=== PATIENT | female | born 1995 | race Caucasian/White ===

== ENCOUNTER → 2024-09-28 15:22 | Outpatient (BNVA) | payer MEDICAID, SELFPAY | PROVIDERS: PCP Internal Medicine; Visit Provider Nurse Practitioner Family | DX: N39.0 Urinary tract infection, site not specified (principal) | CPT/HCPCS: 51798; 81003; 99212 ==

== ENCOUNTER 2024-12-26 15:39 | Outpatient (REF) | payer MEDICAID, SELFPAY ==
--- NOTE | ~2024-12-26 | US_ITS ---
EXAMINATION: US RETROPERITONEUM HISTORY: N39.0 - Urinary tract infection, site not specified TECHNIQUE: Real-time grayscale ultrasound imaging of the kidneys was performed and images were reviewed. COMPARISON: There are no prior studies for comparison. FINDINGS: Right kidney: The right kidney measures 9.8 x 3.1 x 4.7 cm. Renal parenchymal echotexture and thickness are normal. There are no masses. There is no hydronephrosis or renal calculi. Left Kidney: The left kidney measures 9.6 x 4.4 x 4.2 cm. Renal parenchymal echotexture and thickness are normal. There are no masses. There is no hydronephrosis or renal calculi. The urinary bladder is unremarkable. Bilateral ureteral jets are identified. Before voiding, the urinary bladder measured 6.5 x 5.4 x 9.7 cm, for an estimated volume of 177 mL. After voiding, the urinary bladder measured 3.7 x 1.1 x 3.5 cm, for an estimated volume of 7 mL US/US retroperitoneal comp IMPRESSION: Unremarkable retroperitoneal ultrasound. Post void bladder residual of 7 mL. Electronically signed by: Vel Easley MD 12/28/2024 12:40 PM EDT
--- OUTSIDE RECORDS SUMMARY | 2024-12-26 18:28 | XMS_ITS | Clinical Summary ---
Author Organization [employer] Address [address] [facility] 7t [place] [address] Care Team Providers Care Professor Of Rhetoric Name Role Phone Steven Pruitt MD Primary Care Prov ider Allergies Active Allergy Reactions Criticality Noted Date Comments Gluten Meal 09/28/2015 Wheat 09/28/2015 Medications MV-Min-Fe Fum-FA-DHA ( 1 PO) Take by mouth. Active acetaminophen (Tylenol) 500 MG tablet Take 2 tablets (1,000 mg) by mouth every 6 (six) hours if needed for moderate pain or fever for up to 25 doses. 40 tablet Active Additional Information Patient not taking.Reported on 10/06/2024 ibuprofen 400 MG tablet Take 1 tablet (400 mg) by mouth every 6 (six) hours if needed for moderate pain or fever for up to 30 doses. 30 tablet Active Additional Information Patient not taking.Reported on 10/06/2024 Active Problems Problem Noted Date Diagnosed Date Dysuria 03/31/2024 Assessment & Plan (03/31/2024 4:15 PM EDT): -02/2023 Ucx Staphylococcus saprophyticus Quant > 100,000 cfu/mL Staphylococcus saprophyticus: Clindamycin >=8(R) Staphylococcus saprophyticus: Erythromycin >=8(R) Staphylococcus saprophyticus: Nitrofurantoin <=16(S) Staphylococcus saprophyticus: Oxacillin 0.5(S) Staphylococcus saprophyticus: Penicillin-G 0.12(R) Staphylococcus saprophyticus: Tetracycline <=1(S) Staphylococcus saprophyticus: Trimethoprim/Sulfamethoxazole <=10(S) Specimen Source: Urine clean catch Specimen Colle Urine dipstick today Nitrates neg LE small ,reports last UTI was 08/2023, has couple a year ,seems possibly after has sex urine preg test neg today Pt w LUTS no concerning symptoms for pyelonephritis -improve hydration -advised pt to make sure to urinate if possible before and after having sex -UA w reflex to cx -empiric macrobid BID for 5 days and pyridium -rec to f w PCP if recurrent UTIs may need to be started on ATB x1 dose after sex -alarm signs and symptoms discussed Dental plaque 11/03/2023 Localized gingival recession, minimal 11/03/2023 Mild gingivitis 09/11/2022 Encounters Date Type Department Care Team Description 11/11/20[address] [facility] () Department [address] [id number] Provider, Population Health Generic 10/06/2024 8:00 AM EST Office Visit [facility] [address] [place] [address] ZiaKim Dental plaque (Primary Dx); Localized gingival recession, minimal from Last 3 Months Social History Tobacco Use Types Packs/Day Years Used Date Smoking Tobacco: Former Cigarettes Passive Smoke Exposure: Current Smokeless Tobacco: Never Tobacco Cessation:Counseling Given: Not Answered Passive Exposure Comments:Pt's boyfriend Alcohol Use Standard Drinks/Week Comments Never 0 (1 standard drink = 0.6 oz pur e alcohol) Depression Answer Date Recorded Patient Health Questionnaire-9 Score 0 10/14/2023 Patient Health Questionnaire-9 Score 0 10/14/2023 Last PHQ-9: Questionnaire Data Not on file 0 10/14/2023 Housing Stability Answer Date Recorded What is your housing situation today? I have koffi bennett 10/07/[address] you li ve. Do you have problems with any of the following? None of the above 10/07/2023 Food Insecurity Answer Date Recorded Within the past 12 months, y ou worried that your food would run out before you got money to buy more: Never True 10/07/2023 Within the past 12 months,th e food you bought just didn't last and you didn't have enough money to get more: Never True 02/2024 Transportation Answer Date Recorded In the past 12 months, has l ack of transportation kept you from medical appts, meetings, work or from getting things needed for daily living? No 10/07/2023 Utilities Answer Date Recorded In the past 12 months, has t he electric, gas, oil or water company threatened to shut off services in your home? No 10/07/2023 Depression Answer Date Recorded Patient Health Questionnaire-2 Score 0 10/14/2023 Comments Unknown Sex and Gender Information Value Date Recorded Sex Assigned at Female 06/30/2022 10:17 AM EDT Legal Sex Female 10:17 AM EDT Gender Identity Female 06/30/2022 10:17 AM EDT Sexual Orientation Bisexual 06/30/2022 10 :17 AM EDT Last Filed Vital Signs Vital Sign Reading Time Taken Comments Blood Pressure 104/68 10/06/2024 7:54 AM EST Pulse 87 08/02/2024 8:50 AM EST Temperature 36.7 ??C (98.1 ??F) 08/02/2024 8:50 AM ES T Respiratory Rate 17 08/02/2024 8:50 AM EST Oxygen Saturation 99% 08/02/2024 8:50 AM EST Inhaled Oxygen Concentration - - Weight 66.3 kg (146 lb 3.2 oz) 08/02/2024 8:50 A M EST Height 162.6 cm (5' 4 ) 10/14/2023 9:42 AM EST Body Mass Index 25.1 10/14/2023 9:42 AM EST Plan of Treatment Upcoming Encounters Date Type Department Care Team (Late st Contact Info) Description 04/20/2025 8:00 AM EDT Office Visit [facility] [address] [place] [address] Kim Lizarraga [address] [place] [address] Health Maintenance Due Date Last Done Comments Alcohol/Substance Use Screening 2006 Family Planning (PISQ) 2009 Cervical Cancer Screening 07/17/2021 Pap Smear 07/17/2021 07/17/2020 COVID-19 Vaccine ( season) 2024 03/28/2021, 02/28/2021 Influenza Vaccine (#1) 2024 , 09/28/2018, 08/21/2011, Additional history exists Dental Oral Exam 05/06/2024 11/03/2023, 09/11/2022 SDOH Screening 10/07/2024 10/07/2023 Depression Screening 10/14/2024 10/14/2023, 10/14/19 24 HPV/Cotest 2024 Dental X-Ray: Bitewings 11/03/2024 11/03/2023, 09/11 Dental Prophylaxis 04/06/2025 10/06/2024, 0 11/03/2023, 09/11/2022 Dental X-Ray: Full Mouth 09/12/2025 09/11/2022 Tobacco Screening 10/06/2025 10/06/2024 DTaP/Tdap/Td Vaccines (8 - Td or Tdap) 09/28/2028 09/28/2018, 05/05/2007, 11/08/1998, Additional history exists Zoster Vaccines (1 of 2) 2044 RSV Patients and Patients Aged 60 years or older (1 - 1-dose 75+ series) 2069 HIB Vaccines Completed 01/26/1996, 05/01, 02/23/1995, Additional history exists IPV Vaccines Completed 11/08/1998, 05/01, 02/23/1995, Additional history exists Meningococcal Vaccine Aged Out 02/11/2007 No lizeth iban eligible based on patient's age to complete this topic HPV Vaccines Completed 09/06/2007, 02/2008, 05/05/2007, Additional history exists HIV Screening Completed 05/29/2021, 05/02, 03/22/2021, Additional history exists Hepatitis C Screening Completed 05/29/2021 , 03/22/2021, 09/30/2019 Hepatitis B Vaccines Completed 08/22/2021, 05/30/2021, 05/02/2021, Additional history exists Hepatitis A Vaccines Aged Out No long er eligible based on patient's age to complete this topic Pneumococcal Vaccine: Pediatrics (0 to 5 Years) and At-Risk Patients (6 to 49) Years) Aged Out No longer eligible based on patient's age to complete this topic RSV under 20 months Aged Out No longe r eligible based on patient's age to complete this topic Rotavirus Vaccines Aged Out No longer eligible based on patient's age to complete this topic Procedures Procedure Name Priority Date/Time Associated Diagnosis Comments CASE PRESENTATION, DETAILED AND EXTENSIVE TREATMENT PLANNING Routine 10/06/2024 8:00 AM EST Dental plaque Localized gingival recession, minimal ORAL HYGIENE INSTRUCTIONS Routine 10/06/2024 8:00 AM EST Dental plaque Localized gingival recession, minimal PROPHYLAXIS - ADULT Routine 10/06/2024 8 :00 AM EST Dental plaque BITEWINGS - 4 RADIOGRAPHIC IMAGES Routine 11/03/2023 10:00 AM EST Dental plaque Localized gingival recession, minimal PERIODIC ORAL EVALUATION - ESTABLISHED PATIENT Routine 11/03/2023 10:00 AM EST INTRAORAL - COMPLETE SERIES OF RADIOGRAPHIC IMAGES Routine 09/11/2022 11:00 AM EST ZZZ HISTORICAL HEPATITIS C AB W/REFL TO HCV RNA, QN, PCR Routine 05/29/2021 11:45 AM EDT HIV 1/2 ANTIGEN/ANTIBODY, FOURTH GENERATION W/RFL Routine 05/29/2021 11:14 AM EDT THINPREP PAP Routine 07/17/2020 2:15 PM EST from Last 3 Months or Most Recently Relevant to Health Maintenance Results * HEPATITIS C AB W/REFL TO HCV RNA, QN, PCR (05/29/2021 11:45 AM EDT) HEPATITIS C ANTIBODY NON-REACT SHANIQUA NON-REACT SHANIQUA [facility] INDEX 0.02 <1.00 [facility] Comment: ?? HCV antibody was non-reactive. There is no laboratory ?? evidence of HCV infection. ?? In most cases, no further action is required. However, if recent HCV exposure is suspected, a test for HCV RNA (test code 67948) is suggested. ?? For additional information please refer to http://education.[employer]/faq/OEC86g1 (This link is being provided for informational/ educational purposes only.) ?? 05/29/2021 11:4 5 AM EDT us Maye KNOXP HISTORICAL/NON ORDERABLE LABS Final Result Performing Organization Address [facility]/ZIP Co de Phone Number [facility] [address] [place] [address], * HIV 1/2 ANTIGEN/ANTIBODY,FOURTH GENERATION W/RFL (05/29/2021 11:14 AM EDT) Pathologist [facility] HIV-1/2 ANTIGEN AND ANTIBODIES, 4TH GENERATION W/ REFLEX TNP [facility] Comment: TEST NOT PERFORMED ?? Duplicate test. 05/29/2021 11:1 4 AM EDT us Maye Saab [facility] LAB BLOOD ORDERABLES Final Res ult Performing Organization Address [facility] de Phone Number [facility] [address] [place] [address], [place] * THINPREP PAP (07/17/2020 2:15 PM EST) [facility] Clinical Information: SEE COMMENT [facility] Comment:None given COMMENT SEE COMMENT [facility] Comment: EXPLANATORY NOTE: ? The Pap is a screening test for cervical cancer. It is ?? not a diagnostic test and is subject to false negative ?? and false positive results. It is most reliable when a ?? satisfactory sample, regularly obtained, is submitted ?? with relevant clinical findings and history, and when ?? the Pap result is evaluated along with historic and ?? current clinical information. ?? Bookkeeping Clerks Supervisor: SEE COMMENT [facility] Comment: DMM, CT(ASCP) CT screening location: [address] ??[address] Infection SEE COMMENT [facility] Comment: Shift in vaginal catrina suggestive of bacterial vaginosis. Interpretation/Resu lt: SEE COMMENT [facility] Comment:Negative for intraep ithelial lesion or malignancy. LMP: SEE COMMENT [facility] Comment:NONE GIVEN Prev. BX: NONE GIVEN [facility] Prev. PAP: SEE COMMENT [facility] Comment:NONE GIVEN Review Bookkeeping Clerks Supervisor: SEE COMMENT [facility] Comment: HJP, CT(ASCP) CT screening location: [address] ??[address] SOURCE: SEE COMMENT [facility] Comment:None given Statement Of Adequacy: SEE COMMENT [facility] Comment: Satisfactory for evaluation. Endocervical/transformation zone component absent. Age and/or menstrual status not provided 07/17/2020 2:15 PM EST us Halina Reece CNM LAB PATHOLOGY ORDERABLES Final Result [facility] [address] from Last 3 Months or Most Recently Relevant to Health Maintenance Insurance [id number] ADULT Care Teams Professor Of Rhetoric Relationship Specialty Start Date End Date GleasonSteven Lindo MD [address] [place] [id number] PCP - General Internal Medicine 01/29/20
--- OUTSIDE RECORDS SUMMARY | 2024-12-26 18:28 | XMS_ITS | Encounter Summary ---
Author Organization [employer] Address [address] [place] [address] 7 [place] [address] Care Team Providers Care Tipple Mechanic Name Role Phone Steven Pruitt MD Primary Care Prov ider Encounter Details Date Type Department Care Team (Late st Contact Info) Description 08/13/2022 Abstract [facility] ADULT D[facility] [address] [place] [address] Kim Lizarraga [address] [place] [phone] Social History Tobacco Use Types Packs/Day Years Used Date Smoking Tobacco: Never Assessed Comments Unknown Sex and Gender Information Value Date Recorded Sex Assigned at Female 06/30/2022 10:17 AM EDT Legal Sex Female 10:17 AM EDT Gender Identity Female 06/30/2022 10:17 AM EDT Sexual Orientation Bisexual 06/30/2022 10 :17 AM EDT documented as of this encounter Plan of Treatment Upcoming Encounters Date Type Department Care Team (Late st Contact Info) Description 04/20/2025 8:00 AM EDT Office Visit [facility] [address] [place], [place] [phone] Kim Lizarraga [address] [place], [place] [phone] documented as of this encounter Procedures Procedure Name Priority Date/Time Associated Diagnosis Comments 14 LARA COMPOSITE FILLING Routine 08/13/20 22 12:00 AM EST 15 LARA COMPOSITE FILLING Routine 08/13/20 22 12:00 AM EST 31 LO COMPOSITE FILLING Routine 08/13/20 22 12:00 AM EST 2 LO COMPOSITE FILLING Routine 2 12:00 AM EST 30 O AMALGAM FILLING Routine 08/13/2022 12:00 AM EST 19 O AMALGAM FILLING Routine 08/13/2022 12:00 AM EST 32 EXTRACTION Routine 08/13/2022 12:00 AM EST 17 EXTRACTION Routine 08/13/2022 12:00 AM EST 16 EXTRACTION Routine 08/13/2022 12:00 AM EST 1 EXTRACTION Routine 08/13/2022 12:00 AM EST documented in this encounter Visit Diagnoses Not on filedocumented in this encounter Care Teams Tipple Mechanic Relationship Specialty Start Date End Date Steven Pruitt MD [address] [place] [id number] PCP - General Internal Medicine 01/29/20 documented as of this encounter
--- OUTSIDE RECORDS SUMMARY | 2024-12-26 18:28 | XMS_ITS | Encounter Summary ---
Author Organization [facility] Address [address] [place] [address] Phone Care Team Providers Care Lieutenant Colonel Name Role Phone Erin Alexander MD Primary Care Provider Unavailabl e Encounter Details Date Type Department Care Team (Late st Contact Info) Description 04/16/2017 Conversion Encounter [facility] - [address] [address] Social History Tobacco Use Types Packs/Day Years Used Date Smoking Tobacco: Never Comments:Never smoker Comments Unknown Sex and Gender Information Value Date Recorded Sex Assigned at Not on file Legal Sex Female 4:50 PM EDT Gender Identity Not on file Sexual Orientation Not on file documented as of this encounter Plan of Treatment Not on file documented as of this encounter Visit Diagnoses Not on filedocumented in this encounter Care Teams Lieutenant Colonel Relationship Specialty Start Date End Date Erin Alexander MD PCP - General 04/10/17 documented as of this encounter
--- OUTSIDE RECORDS SUMMARY | 2024-12-26 18:28 | XMS_ITS | Clinical Summary ---
Author Organization [facility] Address [address] [place] [phone] Phone Care Team Providers Care Housing Grant Analyst Name Role Phone Erin Alexander MD Primary Care Provider Unavailabl e Immunizations Immunization Administration Dates Next Due DTP 01/26/1996, 5,02/23/1995, 995 DTaP 5 11/08/1998 HPV, Quadrivalent 09/06/2007,05/05/2007,02/12/20 07 Hep B, ped/adol 05/11/1995,02/23/1995,1994 Hib (HbOC) 01/26/1996, 5,02/23/1995, 995 IPV 11/08/1998, 5,02/23/1995, 995 Influenza Split 08/21/2011 Influenza, injectable, trivalent 08/25/2008,07/02,06/21/2003 MMR 11/08/1998,11/24/1995 Meningococcal Conj (Menactra) MCV4P 02/11/2007 Tdap 05/05/2007 Varicella 10/24/2008,08/10/2002 Family History Relation Name Status Comments Brother Brother: Asthma Father Alive Father: Alive a nd well Mother Alive Mother: Asthma Other 1 uncle: Migraine s Other 2 No family histo ry of Strabismus/amblyopia Social History Tobacco Use Types Packs/Day Years Used Date Smoking Tobacco: Never Comments:Never smoker Comments Unknown Sex and Gender Information Value Date Recorded Sex Assigned at Not on file Legal Sex Female 4:50 PM EDT Gender Identity Not on file Sexual Orientation Not on file Last Filed Vital Signs Vital Sign Reading Time Taken Comments Blood Pressure 110/64 06/10/2013 12:00 AM EDT Pulse 60 08/21/2011 12:00 AM EST Temperature 36.4 ??C (97.6 ??F) 06/10/2013 12:00 AM E DT Respiratory Rate - - Oxygen Saturation - - Inhaled Oxygen Concentration - - Weight 54.2 kg (119 lb 8 oz) 06/10/2013 12:00 AM EDT Height 163.8 cm (5' 4.5 ) 06/10/2013 12:00 AM ED T Body Mass Index 20.2 06/10/2013 12:00 AM EDT Plan of Treatment Health Maintenance Due Date Last Done Comments DTaP,Tdap,and Td Vaccines (7 - Td or Tdap) 05/05/2017 05/05/2007, 11/08/1998, 01/26/1996, Additional history exists Influenza Vaccines (#1) 2024 08/21/20, 08/25/2008, 07/24/2003, Additional history exists COVID-19 Vaccine (2023- season) 2024 Hepatitis B Vaccines Completed 05/11/1995, 02/23/1995, 1994 HIB Vaccines Completed 01/26/1996, 05/01, 02/23/1995, Additional history exists IPV Vaccines Completed 11/08/1998, 05/01, 02/23/1995, Additional history exists MMR Vaccines Completed 11/08/1998, 11/24/1995 Meningococcal Vaccine Aged Out 02/11/2007 No lizeth iban eligible based on patient's age to complete this topic HPV Vaccines Completed 09/06/2007, 090 12/2006, 02/11/2007 Varicella Vaccines Completed 10/24/2008, 08/10/2002 Hepatitis A Vaccines Aged Out No long er eligible based on patient's age to complete this topic Men B Vaccine Aged Out No longer elig ible based on patient's age to complete this topic Pneumococcal Vaccine Aged Out No long er eligible based on patient's age to complete this topic Care Teams Housing Grant Analyst Relationship Specialty Start Date End Date Erin Alexander MD PCP - General 04/10/17
--- OUTSIDE RECORDS SUMMARY | 2024-12-26 18:28 | XMS_ITS | Encounter Summary ---
Author Organization [facility] Address [address] [place] [phone] Phone Care Team Providers Care Sign Installer Name Role Phone Erin Alexander MD Primary Care Provider Unavailabl e Encounter Details Date Type Department Care Team (Late st Contact Info) Description 09/26/2011 Documentation [facility] Family Medicine [address] [place] [address] Family Medicine, Physician [facility] [place] [address] Social History Tobacco Use Types Packs/Day Years [...] on filedocumented in this encounter Care Teams Sign Installer Relationship Specialty Start Date End Date Erin Alexander MD PCP - General 04/10/17 documented as of this encounter
--- OUTSIDE RECORDS SUMMARY | 2024-12-26 18:28 | XMS_ITS | Encounter Summary ---
Author Organization [employer] Address [address] [place] [address] [address] [address] Care Team Providers Care Ice Guard Inspector Name Role Phone Steven Pruitt MD Primary Care Prov ider Encounter Details Date Type Department Care Team (Late Contact Info) Description 01/13/[address] [facility] [address] [place], [place] [phone] Steven Pruitt MD [address] [place] [address] Social History Tobacco Use Types Packs/Day Years Used Date Smoking Tobacco: Former Cigarettes Passive Smoke Exposure: Current Smokeless Tobacco: Never Passive Exposure Comments:Pt 's boyfriend Alcohol Use Standard Drinks/Week Comments Never 0 (1 standard drink = 0.6 oz pur e alcohol) Comments Unknown Sex and Gender Information Value [...] Description 04/20/2025 8:00 AM EDT Office Visit [facility] [address] [place] [address] Zia Kim [address] [place] [address] documented as of this encounter Visit Diagnoses Not on filedocumented in this encounter Care Teams Ice Guard Inspector Relationship Specialty Start Date End Date GleasonSteven Lindo MD [address] [place] [phone] PCP - General Internal Medicine 01/29/20 documented as of this encounter
--- OUTSIDE RECORDS SUMMARY | 2024-12-26 18:28 | XMS_ITS | Encounter Summary ---
Author Organization [employer] Address [address] [address] Care Team Providers Care Manager Center Name Role Phone Steven Pruitt MD Primary Care Prov ider Reason for Visit * Reason Onset Date Comments Appointment Request 10/02/2023 Encounter Details Date Type Department Care Team ([facility] st Contact Info) Description 10/02/2023 Telephone [facility] [address] [place] [address] Steven Pruitt MD [address] [place] [address] Appointment Request Social History Tobacco Use Types Packs/Day Years [...] AM EDT documented as of this encounter Miscellaneous Notes * Telephone Encounter - Narinder Burden - 10/06/2023 9:28 AM EST Tc from pt returning call. Quarter Trimmer booked pt for 10/14/23 for OV appt with PCP in person. * Telephone Encounter - Jovana Miller - 10/02/2023 12:47 PM EST Tc from pt requesting f/u appt with PCP pt stated during walk in visit she was advise to make appt with PCP. Please contact pt on Thursday 9am to noon. documented in this encounter Plan of Treatment Upcoming Encounters Date Type Department Care Team (Late st Contact Info) Description 04/20/2025 8:00 AM EDT Office Visit [facility] ADULT D[facility] [address] [place] [address] Zia Kim [address] [place] [address] documented as of this encounter Visit Diagnoses Not on filedocumented in this encounter Care Teams Manager Center Relationship Specialty Start Date End Date Steven Pruitt MD [address] [place] [id number] PCP - General Internal Medicine 01/29/20 documented as of this encounter
== END 2024-12-26 15:40 | disposition home or self-care (01) ==
LOC: HO.US 15:39
PROVIDERS: PCP Internal Medicine; Visit Provider Nurse Practitioner Family
DX: N39.0 Urinary tract infection, site not specified (principal)
CPT/HCPCS: 76770

== ENCOUNTER → 2024-12-26 15:40 | Outpatient (BNV) | payer MEDICAID, SELFPAY | PROVIDERS: PCP Internal Medicine; Visit Provider Radiology Diagnostic Radiology | DX: R39.14 Feeling of incomplete bladder emptying (principal) | CPT/HCPCS: 76770 ==

== ENCOUNTER 2025-01-05 15:50 | Outpatient (AMB) | payer MEDICAID, SELFPAY ==
--- NOTE | 2025-01-05 15:52 | MHC.OFFVIS ---
Intake Visit Reasons: 3m/US(set) Intake Note: Patient is present for 3M/US Urology Medication:NONE Antibiotic Allergy:NONE Blood Thinner:NONE Eyelet Machine Operator Required: No Allergies gluten Allergy (Verified 01/05/25 15:53) Stomach Upset HPI Comments Details: Hattie is a very pleasant 29-year-old female patient of Dr. Rosibel Gary. She presents to the office today for follow-up. Of note, patient was seen approximately 5 months ago as a new patient for recurrent urinary tract infections at which time a retroperitoneal ultrasound was ordered for further assessment evaluation. These results were reviewed and communicated with the patient today 12/23 bilateral kidneys are normal in echotexture and thickness. There are no renal masses, renal calculi, or hydronephrosis noted bilaterally. The bladder is unremarkable. Unremarkable retroperitoneal ultrasound. In discussion with the patient today she denies having had any bothersome urinary issues or concerns since her last office visit here. She denies having had any UTIs and or UTI like symptoms in the last 5 months. Previous urine cultures are as follows: 03/22 Staphylococcus saprophyticus, 04/23 Staphylococcus saprophyticus, 08/23 E coli. We discussed potential causes of recurrent urinary tract infections. We also discussed further treatment options and risks and benefits of these treatment options. She currently denies urinary urgency, urinary frequency, incontinence, nocturia, hematuria, dysuria, foul smelling urine, changes to urinary stream, flank pain, fever, and or chills. She is happy with her current voiding parameters. She does report at times feeling symptoms initiate status post sexual intercourse. In office urinalysis results reviewed with the patient today. We discussed at length importance of adequate hydration relation to recurrent urinary tract infections as well as overall health and well-being. REPLACED BY [facility] Medical History Recurrent UTI Review of Systems Const All systems reviewed & are unremarkable except as noted in HPI and below Physical Exam Const General: cooperative, healthy appearing, comfortable, no acute distress, well developed, alert and awake Nutritional Appearance: average body habitus Orientation/consciousness: patient oriented x3 Limitations: no limitations HEENT Head: Yes normal to inspection, Yes normocephalic and Yes atraumatic Ears: hearing grossly normal bilaterally Eyes General: appearance normal, both eyes and all related structures Neck Neck: Yes normal visual inspection and Yes trachea midline Chest Chest palpation & inspection: normal inspection of the chest Resp Effort & Inspection: normal respiratory effort and able to speak in complete sentences Cardio Rate: regular rate GI Inspection: Yes normal to inspection General: Yes no CVA tenderness Back/Spine/Pelvis Back: no CVA tenderness Skin General skin exam: no rashes or lesions noted Neuro General: patient oriented x3 Extrem General: Yes normal to inspection Psych Appearance: grossly normal and well kempt Mental Status: mental status grossly normal Speech and movement: Normal speech and movement present and Clear speech present Affect: normal affect Attitude: cooperative Thought process: Normal thought process present Thought content: Normal thought content present Insight: Fair insight present (Psych) Judgement: Fair judgement present (Psych) Results Reviewed Results Reviewed: Date of Service: 12/26/24 Procedure(s): US retroperitoneal comp FINDINGS: Right kidney: The right kidney measures 9.8 x 3.1 x 4.7 cm. Renal parenchymal echotexture and thickness are normal. There are no masses. There is no hydronephrosis or renal calculi. Left Kidney: The left kidney measures 9.6 x 4.4 x 4.2 cm. Renal parenchymal echotexture and thickness are normal. There are no masses. There is no hydronephrosis or renal calculi. The urinary bladder is unremarkable. Bilateral ureteral jets are identified. Before voiding, the urinary bladder measured 6.5 x 5.4 x 9.7 cm, for an estimated volume of 177 mL. After voiding, the urinary bladder measured 3.7 x 1.1 x 3.5 cm, for an estimated volume of 7 mL IMPRESSION: Unremarkable retroperitoneal ultrasound. Post void bladder residual of 7 mL. Assessment & Plan Assessment & Plan (1) Recurrent UTI: Code(s): N39.0 - Urinary tract infection, site not specified Category: Medical Plan In office urinalysis results with the patient today; as noted above. Recent retroperitoneal ultrasound results with the patient today; as noted above. Patient currently denies any bothersome urinary issues or concerns. She reports be happy with current voiding parameters. Will continue with surveillance monitoring. Discussed UTI prevention with D mannose supplement, vitamin-C, increasing fluid intake, behavioral therapy with timed voiding, perineal hygiene and postcoital voiding, and management of constipation with stool softeners and increased fiber intake. We discussed at length potential causes of recurrent urinary tract infections as well as further treatment options and risks and benefits of these treatment options. Follow-up in 6 months with [facility]; or sooner with any issues, concerns, and or questions. Patient Instructions: The patient had an opportunity to ask questions regarding the treatment plan. All questions were answered. Physical exam, labs, and imaging were discussed and reviewed in detail. As well as risks, benefits, and discussion of treatment choices. No major barriers to understanding were identified. The patient expressed understanding and agreement with the above treatment plan. The patient was made aware they should contact our office by phone for worsening of their current condition, the appearance of new symptoms, or with any questions or concerns. Compliance is encouraged with any medications and follow up testing that is ordered. It is a privilege to be allowed the opportunity to participate in? your urological care.? Again, if you have any questions or concerns If you have any questions or concerns please do not hesitate to contact me. The office is [phone]. This note is constructed using voice recognition software. While every effort has been made to ensure accuracy edger machine helper errors may have been included. Yours sincerely, MILAGROS Gonzalez Coding Level of Care Code Est Pt Level 3 (40434) Diagnoses Recurrent UTI N39.0
--- OUTSIDE RECORDS SUMMARY | 2025-01-05 16:12 | XMS_ITS | Encounter Summary ---
Author Organization [employer] Address [address] [place] [address] 7 [place] [address] Care Team Providers Care Wide Area Network Administrator Name Role Phone Steven Pruitt MD Primary Care Prov ider Encounter Details Date Type Department Care Team (Late st Contact Info) Description 08/13/2022 Abstract [facility] ADULT DENTAL [address] [place] [address] Kim Lizarraga [address] [place] [phone] Social History Tobacco Use Types Packs/Day Years [...] Description 04/20/2025 8:00 AM EDT Office Visit [facility] [address] [place] [address] Kim Lizarraga [address] [place] [address] documented as of this encounter Procedures Procedure Name Priority Date/Time Associated Diagnosis Comments 14 LARA COMPOSITE FILLING Routine 08/13/20 22 12:00 AM EST 15 LARA COMPOSITE FILLING Routine 08/13/20 22 12:00 AM EST 31 LO COMPOSITE FILLING Routine 08/13/20 22 12:00 AM EST 2 LO COMPOSITE FILLING Routine 12/14/202 2 12:00 AM EST 30 O AMALGAM [...] on filedocumented in this encounter Care Teams Wide Area Network Administrator Relationship Specialty Start Date End Date Steven Pruitt MD [address] [place] [address] PCP - General Internal Medicine 01/29/20 documented as of this encounter
--- OUTSIDE RECORDS SUMMARY | 2025-01-05 16:12 | XMS_ITS | Encounter Summary ---
Author Organization [facility] Address [address] [place] [phone] Phone Care Team Providers Care Bilingual Loan Processor Name Role Phone Erin Alexander MD Primary Care Provider Unavailabl e Encounter Details Date Type Department Care Team (Late st Contact Info) Description 09/26/2011 Documentation [facility] [address] [place] [address] Family Medicine, Physician [facility] [place] [address] Social History Tobacco Use Types Packs/Day Years [...] on filedocumented in this encounter Care Teams Bilingual Loan Processor Relationship Specialty Start Date End Date Erin Alexander MD PCP - General 04/10/17 documented as of this encounter
--- OUTSIDE RECORDS SUMMARY | 2025-01-05 16:12 | XMS_ITS | Clinical Summary ---
Author Organization [facility] Address [address] [place] [phone] Phone Care Team Providers Care Campus Ambassador Name Role Phone Erin Alexander MD Primary [...] age to complete this topic Care Teams Campus Ambassador Relationship Specialty Start Date End Date Erin Alexander MD PCP - General 04/10/17
--- OUTSIDE RECORDS SUMMARY | 2025-01-05 16:12 | XMS_ITS | Clinical Summary ---
Author Organization [employer] Address [address] [facility] 7t [place] [address] Care Team Providers Care Glazier Artist Name Role Phone Steven Pruitt MD Primary [...] Encounters Date Type Department Care Team Description 12/26/2024 Orders Only [facility] External Provider, [facility] 11/11/2024 Population Health Risk Score [facility] [address] [place] [phone] Provider, Population Health Generic from Last 3 Months Social History Tobacco [...] Description 04/20/2025 8:00 AM EDT Office Visit [facility] ADULT DENTAL [address] [place] [address] Zia, Kim [address] [place] [address] Health Maintenance Due Date Last Done Comments Alcohol/Substance Use Screening 2006 Family Planning (PISQ) 2009 Cervical Cancer Screening 07/17/2021 Pap Smear 07/17/2021 07/17/2020 COVID-19 Vaccine ( season) 2024 03/28/2021, 02/28/2021 Influenza Vaccine (#1) 2024 0, 09/28/2018, 08/21/2011, Additional history exists Dental Oral [...] Procedure Name Priority Date/Time Associated Diagnosis Comments US RETROPERITONEAL COMPLETE Routine 12/26/2024 4:03 PM EDT PROPHYLAXIS - ADULT Routine 10/06/2024 8 :00 [...] Recently Relevant to Health Maintenance Results * US Retroperitoneal Complete (12/26/2024 4:03 PM EDT) Anatomical Region Laterality Modality Ultrasound 12/26/2024 4:03 PM EDT Narrative 12/28/2024 12:43 PM EDT ? [facility] ?[address] ?[place] [address] ? Ultrasound Report ? Signed ? Patient: Alex Belcher,Hattie N ?MR#: [id number] ?? [id number] ? : 1995 ?Acct:[id number] ? Age/Sex: 29 / F ?ADM Date: 04/28/25 ? Loc: HO.US ? Attending Manuel Allen STREET DEPARTMENT DISPATCHER-BC ? Ordering Physician: Miladys Allen ?? Date of Service: 12/26/24 ?? Procedure(s): US retroperitoneal comp ?? Accession Number(s): [id number] ? cc: Steven Pruitt MD; Miladys Allen ? EXAMINATION: ??US RETROPERITONEUM ? HISTORY: N39.0 - Urinary tract infection, site not specified ? TECHNIQUE: Real-time grayscale ultrasound imaging of the kidneys was ?? performed and images were reviewed. ? COMPARISON: There are no prior studies for comparison. ? FINDINGS: ? Right kidney: ??The right kidney measures 9.8 x 3.1 x 4.7 cm. ??Renal ?? parenchymal echotexture and thickness are normal. ??There are no masses. ?? There is no hydronephrosis or renal calculi. ? Left Kidney: ??The left kidney measures 9.6 x 4.4 x 4.2 cm. ??Renal ?? parenchymal echotexture and thickness are normal. ??There are no masses. ?? There is no hydronephrosis or renal calculi. ? The urinary bladder is unremarkable. Bilateral ureteral jets are ?? identified. Before voiding, the urinary bladder measured 6.5 x 5.4 x ?? 9.7 cm, for an estimated volume of 177 mL. After voiding, the urinary ?? bladder measured 3.7 x 1.1 x 3.5 cm, for an estimated volume of 7 mL ? US/US retroperitoneal comp ?? IMPRESSION: ? Unremarkable retroperitoneal ultrasound. Post void bladder residual of ?? 7 mL. ? Electronically signed by: ??Vel Easley MD ??12/28/2024 12:40 PM EDT ? Dictated By: ?Vel Easley MD ? Signed By: ?<Electronically signed by Vel Easley MD in OV> ?12/28/24 1240 ? DD/ 1603 ? TD/TT: 12/26/24 1610 ? Bakeshop Cleaner: ? Procedure Note [place], Image - 12/28/[address] [address] Ultrasound Report Signed Patient: Hattie Potts SHIRA#: [id number] : 1995Acct:[id number] Age/Sex: 29 / FADM Date: 12/26/24 Loc: HO. Attending Dr: Miladys KNOXP-BC Ordering Physician: Miladys Allen Date of Service: 12/26/24 Procedure(s): US retroperitoneal comp Accession Number(s): [id number] cc: Steven Pruitt MD; Miladys Allen-JOS EXAMINATION: US RETROPERITONEUM HISTORY: N39.0 - Urinary tract infection, site not specified TECHNIQUE: Real-time grayscale ultrasound imaging of the kidneys was performed and images were reviewed. COMPARISON: There are no prior studies for comparison. FINDINGS: Right kidney: The right kidney measures 9.8 x 3.1 x 4.7 cm. Renal parenchymal echotexture and thickness are normal. There are no masses. There is no hydronephrosis or renal calculi. Left Kidney: The left kidney measures 9.6 x 4.4 x 4.2 cm. Renal parenchymal echotexture and thickness are normal. There are no masses. There is no hydronephrosis or renal calculi. The urinary bladder is unremarkable. Bilateral ureteral jets are identified. Before voiding, the urinary bladder measured 6.5 x 5.4 x 9.7 cm, for an estimated volume of 177 mL. After voiding, the urinary bladder measured 3.7 x 1.1 x 3.5 cm, for an estimated volume of 7 mL US/US retroperitoneal comp IMPRESSION: Unremarkable retroperitoneal ultrasound. Post void bladder residual of 7 mL. Electronically signed by: Vel Easley MD 12/28/2024 12:40 PM EDT Dictated By: Vel Easley MD Signed By: <Electronically signed by Vel Easley MD in OV> 12/28/24 1240 DD/ 1603 TD/TT: 12/26/24 1610 Bakeshop Cleaner: [facility] External Provider IMG US PROCEDURES Edited Result - Final * HEPATITIS C AB W/REFL TO HCV RNA, QN, PCR (05/29/2021 11:45 AM EDT) HEPATITIS C ANTIBODY NON-REACT SHANIQUA NON-REACT SHANIQUA [facility] INDEX 0.02 <1.00 [facility] Comment: ?? HCV antibody was non-reactive. There is no laboratory ?? evidence of HCV infection. ?? In most cases, no further action is required. However, if recent HCV exposure is suspected, a test for HCV RNA (test code 16034) is suggested. ?? For additional information please refer to http://education.[employer]/faq/IDJ45y9 (This link is being provided for informational/ educational purposes only.) ?? 05/29/2021 11:4 5 AM EDT us Maye Saab STREET DEPARTMENT DISPATCHER HISTORICAL/NON ORDERABLE LABS Final Result Performing Organization Address [facility] de Phone Number [facility] [address] [place] [address], * HIV 1/2 ANTIGEN/ANTIBODY,FOURTH GENERATION W/RFL (05/29/2021 11:14 AM EDT) HIV-1/2 ANTIGEN AND ANTIBODIES, 4TH GENERATION W/ REFLEX TNP [facility] Comment: TEST NOT PERFORMED ?? Duplicate test. 05/29/2021 11:1 4 AM EDT Maye Saab [facility] LAB BLOOD ORDERABLES Final Res ult Performing Organization Address [facility] Number [facility] [place] [address], * THINPREP PAP (07/17/2020 2:15 PM EST) Pathologist [facility] Clinical Information: SEE COMMENT [facility] Comment:None given COMMENT SEE COMMENT [...] historic and ?? current clinical information. ?? Apprentice Jockey: SEE COMMENT [facility] Comment: DMM, CT(ASCP) CT screening location: [address] ??[address] Infection [facility] Comment: Shift in vaginal catrina suggestive of bacterial vaginosis. Interpretation/Resu lt: [facility] Comment:Negative for intraep ithelial lesion or malignancy. LMP: [facility] Comment:NONE GIVEN Prev. BX: NONE GIVEN [facility] Prev. PAP: SEE COMMENT [facility] Comment:NONE GIVEN Review Apprentice Jockey: [facility] Comment: HJP, CT(ASCP) CT screening location: [address] ??[address] SOURCE: [facility] Comment:None given Statement Of Adequacy: SEE COMMENT [facility] Comment: Satisfactory for evaluation. Endocervical/transformation zone component absent. Age and/or menstrual status not provided 07/17/2020 2:15 PM EST us Halina Reece CNM LAB PATHOLOGY ORDERABLES Final Result [facility] [address] from Last 3 Months or Most Recently Relevant to Health Maintenance Insurance [address] [id number] [facility] DENTAL-[facility] MEDICAID STAND ADULT Care Teams Glazier Artist Relationship Specialty Start Date End Date Steven Pruitt MD [address] [place] [phone] PCP - General Internal Medicine 01/29/20
--- OUTSIDE RECORDS SUMMARY | 2025-01-05 16:12 | XMS_ITS | Encounter Summary ---
Author Organization [employer] Address [address] [place] [address] Care Team Providers Care Spinner Operator Name Role Phone Steven Pruitt MD Primary Care Prov ider Reason for Visit * Reason Onset Date Comments Appointment Request 10/02/2023 Encounter Details Date Type Department Care Team ([facility] st Contact Info) Description 10/02/2023 Telephone [facility] MEDICINE [address] [place] [phone] Steven Pruitt MD [address] [place] [address] Appointment Request Social History Tobacco Use Types [...] AM EST Tc from pt returning call. Marker Assembler booked pt for 10/14/23 for OV appt [...] Description 04/20/2025 8:00 AM EDT Office Visit [facility] ADULT DENTAL [address] [place] [address] Zia Kim [address] [place] [address] documented as of this encounter Visit Diagnoses Not on filedocumented in this encounter Care Teams Spinner Operator Relationship Specialty Start Date End Date Steven Pruitt MD [address] [place] [address] PCP - General Internal Medicine 01/29/20 documented as of this encounter
--- OUTSIDE RECORDS SUMMARY | 2025-01-05 16:12 | XMS_ITS | Encounter Summary ---
Author Organization [employer] Address [address] [place] [address] 7 [place] [address] Care Team Providers Care Finished Metal Repairer Name Role Phone Steven Pruitt MD Primary Care Prov ider Encounter Details Date Type Department Care Team (Late st Contact Info) Description 01/13/2023 Abstract [facility] [address] [place], [place] [phone] Steven Pruitt MD [address] [place] [address] Social History Tobacco Use Types Packs/Day Years [...] Description 04/20/2025 8:00 AM EDT Office Visit [facility] ADULT DENTAL [address] [place] [address] Zia, Kim [address] [place] [address] documented as of this encounter Visit Diagnoses Not on filedocumented in this encounter Care Teams Finished Metal Repairer Relationship Specialty Start Date End Date Steven Pruitt MD [address] [place] [address] PCP - General Internal Medicine 01/29/20 documented as of this encounter
--- OUTSIDE RECORDS SUMMARY | 2025-01-05 16:12 | XMS_ITS | Encounter Summary ---
Author Organization [facility] Address [address] [place] [address] Phone Care Team Providers Care Cruise Agent Name Role Phone Erin Alexander MD Primary Care Provider Unavailabl e Encounter Details Date Type Department Care Team (Late st Contact Info) Description 04/16/2017 Conversion Encounter [facility] - [address] [address] Social History Tobacco Use Types Packs/Day Years [...] on filedocumented in this encounter Care Teams Cruise Agent Relationship Specialty Start Date End Date Erin Alexander MD PCP - General 04/10/17 documented as of this encounter
== END 2025-01-05 16:13 | disposition home or self-care (01) ==
LOC: HO.HUSH 15:51
PROVIDERS: PCP Internal Medicine; Visit Provider Nurse Practitioner Family
DX: Z13.9 Encounter for screening, unspecified (principal); N39.0 Urinary tract infection, site not specified
CPT/HCPCS: 99213

== ENCOUNTER → 2025-01-05 15:50 | Outpatient (BNVA) | payer MEDICAID, SELFPAY | PROVIDERS: PCP Internal Medicine; Visit Provider Nurse Practitioner Family | DX: N39.0 Urinary tract infection, site not specified (principal) | CPT/HCPCS: 81003; 99212 ==

== ENCOUNTER 2025-01-12 16:29 | Outpatient (REF) | payer MEDICAID, SELFPAY ==
--- OUTSIDE RECORDS SUMMARY | 2025-01-12 16:31 | XMS_ITS | Encounter Summary ---
Author Organization [employer] Address [address] [facility] 7 [place] [address] Care Team Providers Care Guest Relations Associate Name Role Phone Steven Pruitt MD Primary Care Prov ider Reason for Visit * Reason Onset Date Comments chartprep 01/11/2025 Encounter Details Date Type Department Care Team ([facility] st Contact Info) Description 01/11/2025 Telephone [facility] MEDICINE [address] [place] [address] Steven Pruitt MD [address] [place] [address] chartprep Social History Tobacco Use Types Packs/Day Years [...] your housing situation today? I have koffi sabrina 10/07/[address] you li [...] encounter Miscellaneous Notes * Telephone Encounter - Sruy Johnson [place] - 01/11/2025 4:18 PM EDT ..Chart Prep Labs: not applicable Images: US done 12/26/24 Vaccines due: Covid Due and Flu Due Referrals: Not Applicable Screenings: PAP and Not Applicable Overdue care gaps: Sbirt, SDOH, GAD7, Disability , and Oral Health documented in this encounter Plan of Treatment Upcoming Encounters Date Type Department Care Team (Late st Contact Info) Description 04/20/2025 8:00 AM EDT Office Visit [facility] ADULT DENTAL [address] [place] [address] Zia, Kim [address] [place] [address] documented as of this encounter Visit Diagnoses Not on filedocumented in this encounter Additional Health Concerns Assessment Noted Time PHQ-9 Depression Total Score: 0 10/14/19 24 9:43 AM EST documented as of this encounter Care Teams Guest Relations Associate Relationship Specialty Start Date End Date Steven Pruitt MD [address] [place] [address] PCP - General Internal Medicine 01/29/20 documented as of this encounter
--- OUTSIDE RECORDS SUMMARY | 2025-01-12 16:31 | XMS_ITS | Encounter Summary ---
Author Organization [employer] Address [address] [facility] 7t [place] [address] Care Team Providers Care Medical Surgical Tech Name Role Phone Steven Pruitt MD Primary Care Prov ider Encounter Details Date Type Department Care Team (Latest Contact Info) Description 01/12/2025 Travel Social History Tobacco Use Types Packs/Day Years [...] t he electric, gas, oil or water Withlocals threatened to shut off services in your home? No 10/07/2023 Depression Answer Date Recorded Patient Health Questionnaire-2 Score 0 10/14/2023 Comments No Sex and Gender Information Value Date Recorded Sex Assigned at Female 06/30/2022 10:17 AM EDT Legal Sex Female 10:17 AM EDT Gender Identity Female 06/30/2022 10:17 AM EDT Sexual Orientation Bisexual 06/30/2022 10 :17 AM EDT documented as of this encounter Plan of Treatment Upcoming Encounters Date Type Department Care Team (Late st Contact Info) Description 04/20/2025 8:00 AM EDT Office Visit [facility] ADULT DENTAL [address] [place], [place] [phone] Zia, Kim [address] [place] [address] documented as of this encounter Visit Diagnoses Not on filedocumented in this encounter Additional Health Concerns Assessment Noted Time PHQ-9 Depression Total Score: 0 10/14/19 24 9:43 AM EST documented as of this encounter Care Teams Medical Surgical Tech Relationship Specialty Start Date End Date Steven Pruitt MD [address] [place] [phone] PCP - General Internal Medicine 01/29/20 documented as of this encounter
--- OUTSIDE RECORDS SUMMARY | 2025-01-12 16:31 | XMS_ITS | Clinical Summary ---
Author Organization [facility] Address [address] [place] [phone] Phone Care Team Providers Care Brown Stock Washer Name Role Phone Erin Alexander MD Primary [...] age to complete this topic Care Teams Brown Stock Washer Relationship Specialty Start Date End Date Erin Alexander MD PCP - General 04/10/17
--- OUTSIDE RECORDS SUMMARY | 2025-01-12 16:31 | XMS_ITS | Clinical Summary ---
Author Organization [employer] Address 75 [facility] 7t [place] [address] Care Team Providers Care Remote Ruby On Rails Developer Name Role Phone Steven Pruitt MD Primary Care Prov ider Allergies Active Allergy Reactions Criticality Noted Date Comments Gluten Meal 09/28/2015 Wheat 09/28/2015 Medications MV-Min-Fe Fum-FA-DHA ( 1 PO) Take by mouth. Active acetaminophen (Tylenol) 500 MG tablet Take 2 tablets (1,000 mg) by mouth every 6 (six) hours if needed for moderate pain or fever for up to 25 doses. 40 tablet 4 Active Additional Information Patient not taking.Reported on 10/06/2024 ibuprofen 400 MG tablet Take 1 tablet (400 mg) by mouth every 6 (six) hours if needed for moderate pain or fever for up to 30 doses. 30 tablet 4 Active Additional Information Patient not taking.Reported on 10/06/2024 fluconazole (Diflucan) 150 MG tablet Take 1 tablet (150 mg) by mouth 1 (one) time for 1 dose. 1 tablet 5 01/13/20 25 Active Drospirenone (Slynd) 4 MG tablet Take 1 tablet by mouth Once per day. 28 tablet 11 5 Active Active Problems Problem Noted Date Diagnosed Date [...] Encounters Date Type Department Care Team Description 01/12/2025 2:00 PM EDT Office Visit [address] [address] Halina Reece CNM Vaginal discharge (Primary Dx); Cervical cancer screening 01/12/2025 Travel 01/11/[address] [address] Steven Pruitt MD chartprep 01/09/[address] [address] Steven Pruitt MD Nurse Triage 12/26/2024 Orders Only [facility] External Provider, [facility] 11/11/2024 Population Health Risk Score [facility] Department [address] [place] [phone] Provider, Population Health Generic from Last [...] Health Questionnaire-2 Score 0 10/14/2023 Comments No Intention Date Recorded No desire to become (finding) 0 01/12/2025 Sex and Gender Information Value Date Recorded Sex Assigned at Female 06/30/2022 10:17 AM EDT Legal Sex Female 10:17 AM EDT Gender Identity Female 06/30/2022 10:17 AM EDT Sexual Orientation Bisexual 06/30/2022 10 :17 AM EDT Last Filed Vital Signs Vital Sign Reading Time Taken Comments Blood Pressure 133/83 01/12/2025 1:48 PM EDT Pulse 78 01/12/2025 1:48 PM EDT Temperature 36.7 ??C (98 ??F) 01/12/2025 1:48 PM EDT Respiratory Rate 20 01/12/2025 1:48 PM EDT Oxygen Saturation 99% 08/02/2024 8:50 AM EST Inhaled Oxygen Concentration - - Weight 62.7 kg (138 lb 3.2 oz) 01/12/2025 1:48 P M EDT Height 163.8 cm (5' 4.5 ) 01/12/2025 1:48 PM EDT Body Mass Index 23.36 01/12/2025 1:48 PM EDT Plan of Treatment Upcoming Encounters Date Type Department Care Team (Late st Contact Info) Description 04/20/2025 8:00 AM EDT Office Visit [facility] [address] [place] [address] Zia, Kim [address] [place] [address] Health Maintenance Due Date Last Done Comments Alcohol/Substance Use Screening 2006 Cervical Cancer Screening 07/17/2021 Pap Smear 07/17/2021 07/17/2020 COVID-19 Vaccine ( season) 2024 03/28/2021, 02/28/2021 Influenza Vaccine (#1) 2024 , 09/28/2018, 08/21/2011, Additional history exists Dental Oral Exam 05/06/2024 11/03/2023, 09/11/2022 SDOH Screening 10/07/2024 10/07/2023 Depression Screening 10/14/2024 10/14/2023, 10/14/19 24 HPV/Cotest 2024 Dental X-Ray: Bitewings 11/03/2024 11/03/2023, 09/11 Dental Prophylaxis 04/06/2025 10/06/2024, 0 11/03/2023, 09/11/2022 Dental X-Ray: Full Mouth 09/12/2025 09/11/2022 Family Planning (PISQ) 01/12/2026 01/12/2025 Tobacco Screening 01/12/2026 01/12/2025 DTaP/Tdap/Td Vaccines (8 - Td or Tdap) [...] on patient's age to complete this topic Meningococcal B Vaccine Aged Out No l onger eligible based on patient's age to complete [...] Procedure Name Priority Date/Time Associated Diagnosis Comments POCT WET MOUNT/ALFRED Routine 01/12/2025 2: 22 PM EDT Vaginal discharge US RETROPERITONEAL COMPLETE Routine 12/26/2024 4:03 PM [...] Recently Relevant to Health Maintenance Results * POCT fern test, vaginal fluid manually resulted (01/12/2025 2:22 PM EDT) ALFRED Prep Positive Comment:pH 4.5, pos hyphae, neg clue, neg whiff, neg trich, neg wbc Vaginal Fluid Vaginal structure / Unknown 01/12/2025 2:22 PM EDT Halina Walls CNM - 01/12/2025 2:22 PM EDT Yeast Halina Reece CNM POINT OF CARE TEST ENTER/ EDIT ORDERABLES Final Result * US Retroperitoneal Complete (12/26/2024 4:03 PM EDT) Anatomical Region Laterality Modality Ultrasound 12/26/2024 4:03 PM EDT Narrative 12/28/2024 12:43 PM EDT ? [facility] ?[address] ?[place] [address] ? Ultrasound Report ? Signed ? Patient: Alex BelcherHattie Girrad ?MR#: [id number] ?? [id number] ? : 1995 ?Acct:[id number] ? Age/Sex: 29 / F ?ADM Date: 12/26/24 ? Loc: HO.US ? Attending Dr: Miladys Allen ENGINE WIPER-BC ? Ordering Physician: Miladys Allen ENGINE WIPER-BC ?? Date of Service: 12/26/24 ?? Procedure(s): US retroperitoneal comp ?? Accession Number(s): [id number] ? cc: Steven Pruitt MD; Miladys Allen [facility] ? EXAMINATION: ??US RETROPERITONEUM ? HISTORY: N39.0 [...] DD/ 1603 ? TD/TT: 12/26/24 1610 ? Fiberglass Luggage Molder: ? Procedure Note Agnes Lazo - 12/28/2024 [place] [address] Ultrasound Report Signed Patient: Hattie Potts [facility]#: [id number] : 1995Acct:[id number] Age/Sex: 29 / FADM Date: 12/26/24 Loc: HO.US Attending Dr: Miladys LINARES Ordering Physician: Miladys Allen Date of Service: 12/26/24 Procedure(s): US retroperitoneal comp Accession Number(s): [id number] cc: Steven Pruitt MD; Miladys Allen-BC EXAMINATION: US RETROPERITONEUM HISTORY: N39.0 - Urinary [...] 12/28/24 1240 DD/ 1603 TD/TT: 12/26/24 1610 Fiberglass Luggage Molder: [facility] External Provider IMG US PROCEDURES Edited Result - Final * HEPATITIS C AB W/REFL TO HCV RNA, QN, PCR (05/29/2021 11:45 AM EDT) HEPATITIS C ANTIBODY NON-REACT SHANIQUA NON-REACT SHANIQUA [facility] INDEX 0.02 <1.00 [facility] Comment: ?? HCV antibody was non-reactive. There is no laboratory ?? evidence of HCV infection. ?? In most cases, no further action is required. However, if recent HCV exposure is suspected, a test for HCV RNA (test code 53102) is suggested. ?? For additional information please refer to http://education.oDesk/faq/QAO14b9 (This link is being provided for informational/ educational purposes only.) ?? 05/29/2021 11:4 5 AM EDT us Maye KNOXP HISTORICAL/NON ORDERABLE LABS Final Result Performing Organization Address [facility]/ZIP Co de Phone Number [facility] [address] [place] [address], * HIV 1/2 ANTIGEN/ANTIBODY,FOURTH GENERATION W/RFL (05/29/2021 11:14 AM EDT) HIV-1/2 ANTIGEN AND ANTIBODIES, 4TH GENERATION W/ REFLEX TNP [facility] Comment: TEST NOT PERFORMED ?? Duplicate test. 05/29/2021 11:1 4 AM EDT us Maye Saab ENGINE WIPER LAB BLOOD ORDERABLES Final Res ult Performing Organization Address [facility] de Phone Number [facility] [address] [place] [address], * THINPREP PAP (07/17/2020 2:15 PM EST) Pathologist [facility] Clinical Information: SEE COMMENT [facility] [...] historic and ?? current clinical information. ?? Ladle Filler: SEE COMMENT [facility] Comment: DMM, CT(ASCP) CT screening location: [address] ??[address] Infection [facility] Comment: Shift in vaginal catrina suggestive of bacterial vaginosis. Interpretation/Resu lt: SEE COMMENT [facility] Comment:Negative for intraep ithelial lesion or malignancy. LMP: [facility] Comment:NONE GIVEN Prev. BX: NONE GIVEN [facility] Prev. PAP: [facility] Comment:NONE GIVEN Review Ladle Filler: [facility] Comment: HJP, CT(ASCP) CT screening location: [address] ??[address] SOURCE: [facility] Comment:None given Statement Of Adequacy: [facility] Comment: Satisfactory for evaluation. Endocervical/transformation zone component absent. Age and/or menstrual status not provided 07/17/2020 2:15 PM EST us Halina YEE LAB PATHOLOGY ORDERABLES Final Result [facility] [address] from Last 3 Months or Most Recently Relevant to Health Maintenance Insurance [address] [address] [facility] C3 DENTAL-[facility] MEDICAID STAND ADULT Care Teams Remote Ruby On Rails Developer Relationship Specialty Start Date End Date Steven Pruitt MD [address] [place] [address] PCP - General Internal Medicine 01/29/20
--- OUTSIDE RECORDS SUMMARY | 2025-01-12 16:31 | XMS_ITS | Encounter Summary ---
Author Organization [facility] Address [address] [place] [address] Phone Care Team Providers Care Steward/Stewardess Banquet Name Role Phone Erin Alexander MD Primary Care Provider Unavailabl e Encounter Details Date Type Department Care Team (Late st Contact Info) Description 04/16/2017 Conversion Encounter [facility] - [address] [address] Social History Tobacco Use Types Packs/Day Years [...] on filedocumented in this encounter Care Teams Steward/Stewardess Banquet Relationship Specialty Start Date End Date Erin Alexander MD PCP - General 04/10/17 documented as of this encounter
--- OUTSIDE RECORDS SUMMARY | 2025-01-12 16:31 | XMS_ITS | Encounter Summary ---
Author Organization [employer] Address 75 [facility] 7 [place] [address] Care Team Providers Care Warehouse Checker Name Role Phone Steven Pruitt MD Primary Care Prov ider Reason for Visit * Reason Comments Gynecologic Exam Encounter Details Date Type Department Care Team ([facility] st Contact Info) Description 01/12/2025 2:00 PM EDT Office Visit [facility] [address] [place] [address] Hailna Reece CNM [address] [place] [address] Vaginal discharge (Primary Dx); Cervical cancer screening Social History Tobacco Use Types Packs/Day Years [...] AM EDT documented as of this encounter Last Filed Vital Signs Vital Sign Reading Time Taken Comments Blood Pressure 133/83 01/12/2025 1:48 PM EDT Pulse 78 01/12/2025 1:48 PM EDT Temperature 36.7 ??C (98 ??F) 01/12/2025 1:48 PM EDT Respiratory Rate 20 01/12/2025 1:48 PM EDT Oxygen Saturation - - Inhaled Oxygen Concentration - - Weight 62.7 kg (138 lb 3.2 oz) 01/12/2025 1:48 P M EDT Height 163.8 cm (5' 4.5 ) 01/12/2025 1:48 PM EDT Body Mass Index 23.36 01/12/2025 1:48 PM EDT documented in this encounter Progress Notes * Halina Reece, LANDRY - 01/12/2025 2:00 PM EDT Subjective Patient ID: Hattie Belcher is a 29 y.o. female who presents for vaginal symptoms Notes vaginal odor and discharge recently. 1 AMAB partner x 5y, no safety concerns. Last visit with wy 2019. Pap NIL 2019, plan was repeat in 1 year due to LSIL 2018. Recent urology visit for recurrent UTI. No current urinary symptoms. LMP 5/2. Monthly menses. Not sexually active without a condom since then. Not planning inthe next year. Would like to use oral contraceptive pill. Review of Systems Genitourinary: Positive for vaginal discharge. Negative for dyspareunia, dysuria, menstrual problem, pelvic pain, vaginal bleeding and vaginal pain. Objective BP 133/83 (BP Location: Left arm, Patient Position: Sitting, BP Cuff Size: Adult) Pulse 78 Temp98 ??F (36.7 ??C) (Temporal) Resp 20 Ht 5' 4.5 (1.638 m) Wt 138 lb 3.2 oz (62.7 kg) LMP 12/30/2024 (Exact Date) BMI 23.36 kg/m?? Physical Exam Constitutional: Appearance: Normal appearance. Genitourinary: General: Normal vulva. Labia: Right: No rash, tenderness, lesion or injury. Left: No rash, tenderness, lesion or injury. Vagina: No signs of injury and foreign body. Vaginal discharge present. No erythema, tenderness, bleeding, lesions or prolapsed vaginal diggs. Cervix: No discharge, friability, lesion, erythema, cervical bleeding or eversion. Comments: Bimanual deferred Neurological: Mental Status: She is alert. Psychiatric: Mood and Affect: Mood normal. Behavior: Behavior normal. Assessment/Plan Diagnoses and all orders for this visit: Vaginal discharge - POCT fern test, vaginal fluid manually resulted Consistent with vulvovaginal candidiasis. Prefers oral treatment. For fluconazole as prescribed. Avoid irritants. Report worsening or persistent symptoms. Cervical cancer screening - Pap Smear Pap/HPV today. Will repeat as indicated by ASCCP. History of possible migraines, BP slightly elevated today. Will use progestin only pill. Start Slynd now. Backup x 7d. Side effects and danger signs reviewed. Report missed menses. This is common with the pill and not dangerous but good to rule out . Other orders - fluconazole (Diflucan) 150 MG tablet; Take 1 tablet (150 mg) by mouth 1 (one) time for 1 dose. - Drospirenone (Slynd) 4 MG tablet; Take 1 tablet by mouth Once per day. documented in this encounter Plan of Treatment Upcoming Encounters Date Type Department Care Team (Late st Contact Info) Description 04/20/2025 8:00 AM EDT Office Visit [facility] ADULT D[facility] [address] [place] [address] Kim Lizarraga [address] [place] [address] Scheduled Orders Name Type Priority Associated Diagnoses Orde r Schedule Pap Smear Pathology and Cytology Routine Cervical cancer screening Ordered: 01/12/2025 documented as of this encounter Procedures Procedure Name Priority Date/Time Associated Diagnosis Comments POCT WET MOUNT/ALFRED Routine 01/12/2025 2: 22 PM EDT Vaginal discharge documented in this encounter Results * POCT fern test, vaginal fluid manually resulted (01/12/2025 2:22 PM EDT) ALFRED Prep Positive Comment:pH 4.5, pos hyphae, neg clue, neg whiff, neg trich, neg wbc Vaginal Fluid Vaginal structure / Unknown 01/12/2025 2:22 PM EDT Impressions Halina Reece CNM - 01/12/2025 2:22 PM EDT Yeast Halina Reece CNM POINT OF CARE TEST ENTER/ EDIT ORDERABLES Final Result documented in this encounter Visit Diagnoses Diagnosis Vaginal discharge- Primary Leukorrhea, not specified as infective Cervical cancer screening Screening for malignant neoplasm of the cervix documented in this encounter Additional Health Concerns Assessment Noted Time PHQ-9 Depression Total Score: 0 10/14/19 24 9:43 AM EST documented as of this encounter Care Teams Warehouse Checker Relationship Specialty Start Date End Date Steven Pruitt MD [address] [place] [phone] PCP - General Internal Medicine 01/29/20 documented as of this encounter
--- OUTSIDE RECORDS SUMMARY | 2025-01-12 16:31 | XMS_ITS | Encounter Summary ---
Author Organization [employer] Address [address] [place] [address] 7 [place] [address] Care Team Providers Care Cleaning And Maintenance Worker Name Role Phone Steven Pruitt MD Primary Care Prov ider Encounter Details Date Type Department Care Team (Late st Contact Info) Description 01/13/2023 Abstract [facility] [address] [place], [place] [phone] Steven Pruitt MD [address] [place] [address] Social History Tobacco Use Types Packs/Day Years [...] 04/20/2025 8:00 AM EDT Office Visit [facility] [address] [place] [address] Zia, Kim [address] [place] [address] documented as of this encounter Visit Diagnoses Not on filedocumented in this encounter Care Teams Cleaning And Maintenance Worker Relationship Specialty Start Date End Date Steven Pruitt MD [address] [place] [phone] PCP - General Internal Medicine 01/29/20 documented as of this encounter
--- OUTSIDE RECORDS SUMMARY | 2025-01-12 16:31 | XMS_ITS | Encounter Summary ---
Author Organization [facility] Address [address] [place] [phone] Phone Care Team Providers Care Liquid Loader Name Role Phone Erin Alexander MD Primary Care Provider Unavailabl e Encounter Details Date Type Department Care Team (Late st Contact Info) Description 09/26/2011 Documentation [facility] Family Medicine [address] [place] [address] Family Medicine, Physician [facility] [address] Social History Tobacco Use Types Packs/Day Years [...] on filedocumented in this encounter Care Teams Liquid Loader Relationship Specialty Start Date End Date Erin Alexander MD PCP - General 04/10/17 documented as of this encounter
--- OUTSIDE RECORDS SUMMARY | 2025-01-12 16:31 | XMS_ITS | Encounter Summary ---
Author Organization [employer] Address [address] [place] [address] Care Team Providers Care Can Marker Name Role Phone Steven Pruitt MD Primary Care Prov ider Reason for Visit * Reason Onset Date Comments Appointment Request 10/02/2023 Encounter Details Date Type Department Care Team ([facility] st Contact Info) Description 10/02/2023 Telephone [facility] [address] [place] [address] Steven Pruitt MD [address] [place] [address] Appointment Request Social History Tobacco Use Types [...] AM EST Tc from pt returning call. Employee Benefits Manager booked pt for 10/14/23 for OV appt [...] Description 04/20/2025 8:00 AM EDT Office Visit [facility] [address] [place] [address] Zia Kim [address] [place] [address] documented as of this encounter Visit Diagnoses Not on filedocumented in this encounter Care Teams Can Marker Relationship Specialty Start Date End Date Steven Pruitt MD [address] [place] [address] PCP - General Internal Medicine 01/29/20 documented as of this encounter
--- OUTSIDE RECORDS SUMMARY | 2025-01-12 16:31 | XMS_ITS | Encounter Summary ---
Author Organization [employer] Address 75 [facility] 7 [place] [address] Care Team Providers Care Field Software Engineer Name Role Phone Steven Pruitt MD Primary Care Prov ider Reason for Visit * Reason Onset Date Comments Nurse Triage 01/09/2025 Encounter Details Date Type Department Care Team ([facility] st Contact Info) Description 01/09/2025 Telephone [facility] [address] [place] [address] Steven Pruitt MD [address] [place] [address] Nurse Triage Social History Tobacco Use Types Packs/Day Years [...] encounter Miscellaneous Notes * Telephone Encounter - Jeny Bolanos RN - 01/09/2025 10:43 AM EDT called pt to triage, spoke to pt. pt states several days duration of vaginal discharge, irritation,itching, and strong odor. pt denies other associated symptoms. [facility] ENTERTAINMENT EDITOR/Lidia Reece on at 2:00 for exam. advised home care: avoid scented products, warm tub baths for comfort, OTC anti itch cream as needed, and call back if worsening or new concerns. pt understands and agrees with plan. insurance verified. Protocol Used: Vaginal Discharge (Adult) Protocol-Based Disposition: See in Office or Video Visit within 3 Days Positive Triage Question: * Bad smelling vaginal discharge * All higher-acuity triage questions were negative Care Advice Discussed: * Note to Triager - Vaginal Discharge * Reassurance and Education - Normal Vaginal Discharge * Genital Hygiene * Reasons To Call Back - Discharge becomes yellow or green - Discharge becomes foul smelling or itchy - Fever or abdomen pain occur - You become worse * Telephone Encounter - Eugene Acosta - 01/09/2025 10:19 AM EDT Symptom: Vaginal Symptoms - Not Bleeding Outcome: Schedule an urgent appointment (within 1 hour) or talk to a nurse or provider soon Reason: Any pelvic pain The caller accepted this outcome. documented in this encounter Plan of Treatment Upcoming Encounters Date Type Department Care Team (Late st Contact Info) Description 04/20/2025 8:00 AM EDT Office Visit [facility] [address] [place], [place] [phone] Zia, Kim [address] [place] [address] documented as of this encounter Visit Diagnoses Not on filedocumented in this encounter Additional Health Concerns Assessment Noted Time PHQ-9 Depression Total Score: 0 10/14/19 24 9:43 AM EST documented as of this encounter Care Teams Field Software Engineer Relationship Specialty Start Date End Date Steven Pruitt MD [address] [place] [address] PCP - General Internal Medicine 01/29/20 documented as of this encounter
--- OUTSIDE RECORDS SUMMARY | 2025-01-12 16:31 | XMS_ITS | Encounter Summary ---
Author Organization [employer] Address [address] [place] [address] 7 [place] [address] Care Team Providers Care Manager Banquet Name Role Phone Steven Pruitt MD Primary Care Prov ider Encounter Details Date Type Department Care Team (Late st Contact Info) Description 08/13/2022 Abstract [facility] [address] [place] [address] Kim Lizarraga [address] [place] [phone] Social History Tobacco Use Types Packs/Day Years [...] Description 04/20/2025 8:00 AM EDT Office Visit [facility] [address] [place] [address] Kim Lizarraga [address] [place] [address] documented as of this encounter Procedures Procedure [...] filedocumented in this encounter Care Teams Manager Banquet Relationship Specialty Start Date End Date Steven Pruitt MD [address] [place] [address] PCP - General Internal Medicine 01/29/20 documented as of this encounter
[2025-01-18 15:29] LABS: HPV Genotype 16 Negative (Negative); HPV Genotype 18 Negative (Negative); HPV High Risk Negative (Negative)
== END 2025-01-12 16:30 | disposition home or self-care (01) ==
LOC: HO.HHCLNP 16:29
PROVIDERS: Visit Provider Advanced Practice Midwife
DX: Z12.4 Encounter for screening for malignant neoplasm of cervix (principal)
CPT/HCPCS: 87626; 88175

== ENCOUNTER 2025-06-16 09:14 | Outpatient (REF) | payer MEDICAID, SELFPAY ==
--- OUTSIDE RECORDS SUMMARY | 2025-06-16 10:08 | XMS_ITS | Encounter Summary ---
Author Organization [employer] Address [address] [address] Care Team Providers Care Hoisting Engineer Pile Driving Name Role Phone Steven Pruitt MD Primary Care Prov ider Reason for Visit * Reason Onset Date Comments Appointment Request 10/02/2023 Encounter Details Date Type Department Care Team ([facility] st Contact Info) Description 10/02/2023 Telephone [facility] [address] [place] [address] Steven Pruitt MD [address] [place] [address] Appointment Request Social History Tobacco Use Types [...] AM EST Tc from pt returning call. Ve Teacher booked pt for 10/14/23 for OV appt with PCP in person. * Telephone Encounter - Jovana Miller - 10/02/2023 12:47 PM EST Tc from pt requesting f/u appt with PCP pt stated during walk in visit she was advise to make appt with PCP. Please contact pt on Thursday 9am to noon. documented in this encounter Plan of Treatment Not on file documented as of this encounter Visit Diagnoses Not on filedocumented in this encounter Care Teams Hoisting Engineer Pile Driving Relationship Specialty Start Date End Date GleasonSteven Lindo MD [address] [place] [address] PCP - General Internal Medicine 01/29/20 documented as of this encounter
--- OUTSIDE RECORDS SUMMARY | 2025-06-16 10:08 | XMS_ITS | Clinical Summary ---
Author Organization [employer] Address [address] [facility] 7[address] [place] [address] Care Team Providers Care Clinical Nutrition Manager Name Role Phone Steven Pruitt MD Primary Care Prov ider Allergies Active Allergy Reactions Criticality Noted Date Comments Gluten Meal 09/28/2015 Other Reaction(s): Stomach Upset Wheat 09/28/2015 Medications MV-Min-Fe Fum-FA-DHA ( 1 PO) Take by mouth. Active acetaminophen (Tylenol) 500 MG tablet Take 2 tablets (1,000 mg) by mouth every 6 (six) hours if needed for moderate pain or fever for up to 25 doses. 40 tablet Active Additional Information Patient not taking.Reported on 04/20/2025 ibuprofen 400 MG tablet Take 1 tablet (400 mg) by mouth every 6 (six) hours if needed for moderate pain or fever for up to 30 doses. 30 tablet 4 Active Additional Information Patient not taking.Reported on 04/20/2025 Drospirenone (Slynd) 4 MG tablet Take 1 tablet by mouth Once per day. 28 tablet 11 Active Additional Information Patient not taking.Reported on 04/20/2025 Active Problems Problem Noted Date Diagnosed Date Back contusion 04/20/2025 Contusion of left hand 04/20/2025 Fall 04/20/2025 Head injury 04/20/2025 Urinary tract infection 04/20/2025 Dysuria 03/31/2024 Assessment & Plan (03/31/2024 4:15 [...] gingival recession, minimal 11/03/2023 Mild gingivitis 09/11/2022 Gluten intolerance 04/30/2018 Encounters Date Type Department Care Team Description 06/06/2025 Telephone [facility] CHC MED & PEDS [address] [place] [address] Steven Pruitt MD 04/26/2025 2:30 PM EDT Office Visit [facility] ADULT DENTAL [address] [place] [address] Ramy Marte 04/20/2025 8:00 AM EDT Office Visit [facility] ADULT DENTAL [address] [place] [address] Ramy Marte Dental caries from Last 3 Months Social History Tobacco [...] Sign Reading Time Taken Comments Blood Pressure 100/60 04/20/2025 8:13 AM EDT Pulse 76 04/20/2025 8:13 AM EDT Temperature 36.7 C (98 F) 01/12/2025 1:48 PM EDT Respiratory Rate 20 01/12/2025 1:48 PM EDT Oxygen Saturation 99% 08/02/2024 8:50 AM EST Inhaled Oxygen Concentration - - Weight 62.7 kg (138 lb 3.2 oz) 01/12/2025 1:48 P M EDT Height 163.8 cm (5' 4.5 ) 01/12/2025 1:48 PM EDT Body Mass Index 23.36 01/12/2025 1:48 PM EDT Plan of Treatment Health Maintenance Due Date Last Done Comments Disability Screening 1994 Alcohol/Substance Use Screening 2006 SDOH Screening 10/07/2024 10/07/2023 Depression Screening 10/14/2024 10/14/2023, 10/14/19 Dental X-Ray: Bitewings 11/03/2024 11/03/2023, 09/11 COVID-19 Vaccine ( season) 2025 03/28/2021, 02/28/2021 Influenza Vaccine (#1) 2025 , 09/28/2018, 08/21/2011, Additional history exists Dental X-Ray: Full Mouth 09/12/2025 09/11/2022 Dental Oral Exam 10/22/2025 04/20/2025, 12/2023, 09/11/2022 Dental Prophylaxis 10/22/2025 04/20/2025, 0 10/06/2024, 11/03/2023, Additional history exists Family Planning (PISQ) 01/12/2026 01/12/2025 Tobacco Screening 04/26/2026 04/26/2025 DTaP/Tdap/Td Vaccines (8 - Td or Tdap) 09/28/2028 09/28/2018, 05/05/2007, 11/08/1998, Additional history exists Cervical Cancer Screening 01/12/2030 HPV/Cotest 01/12/2030 01/12/2025 Pap Smear 01/12/2030 01/12/2025, 07/17/2020 Zoster Vaccines (1 of 2) 2044 RSV [...] Years) and At-Risk Patients (6 to 49) Years Aged Out No longer eligible based on patient's age to complete this topic RSV under 20 months Aged Out No longe r eligible based on patient's age to complete this topic Rotavirus Vaccines Aged Out No longer eligible based on patient's age to complete this topic Procedures Procedure Name Priority Date/Time Associated Diagnosis Comments 3 O RESIN-BASED COMPOSITE - 1 SURF, POSTERIOR Routine 04/26/2025 2:30 PM EDT PROPHYLAXIS - ADULT Routine 04/20/2025 8 :00 AM EDT CASE PRESENTATION, DETAILED AND EXTENSIVE TREATMENT PLANNING Routine 04/20/2025 8:00 AM EDT ORAL HYGIENE INSTRUCTIONS Routine 04/20/2025 8:00 AM EDT PERIODIC ORAL EVALUATION - ESTABLISHED PATIENT Routine 04/20/2025 8:00 AM EDT HPV DNA, LOW/HIGH RISK Routine 01/12/2025 2:00 PM EDT PAP SMEAR Routine 01/12/2025 2:00 PM EDT Cervical cancer screening BITEWINGS - 4 RADIOGRAPHIC IMAGES Routine 11/03/2023 10:00 AM EST Dental plaque Localized gingival recession, minimal INTRAORAL - COMPLETE SERIES OF RADIOGRAPHIC IMAGES Routine 09/11/2022 11:00 AM EST ZZZ HISTORICAL HEPATITIS C AB W/REFL TO HCV RNA, QN, PCR Routine 05/29/2021 11:45 AM EDT HIV 1/2 ANTIGEN/ANTIBODY, FOURTH GENERATION W/RFL Routine 05/29/2021 11:14 AM EDT from Last 3 Months or Most Recently Relevant to Health Maintenance Results * HPV DNA, Low/High Risk (01/12/2025 2:00 PM EDT) HPV High Risk Negative Negative [facility] HPV Genotype 16 Negative Negative [facility] HPV Genotype 18 Negative Negative [facility] Comment:HPV testing performe d at [facility] (CLIA#[id number]), [address] [place] [address].Testing for HPV was performed using the [employer] SafetyPay0system. The presence of HPV in the female genital tract isassociated with a number of diseases, including cervicalcarcinoma. The HPV DNA high risk pool tests for HPV 31, 33,35, 39, 45, 51, 52, 56, 58, 59, 66 and 68. The testing forHPV 16 and 18 genotypes has also been performed. A positiveresult indicates detection of nucleic acid sequences fromone or more subtypes, whereas a negative result indicatessuch sequences were not detected. 01/12/2025 2:00 PM EDT 01/13/2025 9:40 AM EDT us Martin YEE LAB BLOOD ORDERABLES Avelina cooley Result [facility] [address] [place] [phone] * Pap Smear (01/12/2025 2:00 PM EDT) Swab Cervix uteri structure / Unknown 01/12/2025 2:00 PM EDT 01/13/2025 9:40 AM EDT Narrative [facility] - 01/18/2025 10:40 AM EDT ----- ------- Name: Hattie Potts Age/Sex: 29/F : 1995 Unit#: [id number] Attend Dr: MARTIN FERREIRA CNM Re01/12/25 Status: DEP REF Location: [facility] Disch: ----- ------- SPEC : [id number] RECD: 01/13/2540 STATUS: RENETTA HILARIO NUM: [id number] MARTÍN: 01/12/25-[address]: MARTIN FERREIRA [facility] ENTERED: 01/13/257 SP TYPE: Pap Smr OTHR DR: ORDERED: Pap Smear Interpretation Satisfactory for evaluation. Negative for intraepithelial lesion or malignancy. No endocervical cells seen. HPV High Risk: Negative HPV Genotyping 16: Negative HPV Genotyping 18: Negative Clinical Information LMP: Unknown date Previous PAP test: Last PAP NIL 2019 Other history: LSIL 2018 Material Received ThinPrep-Cervical ----- ------- Signed (signature on file) KENNA Mojica (ASCP) 01/18/25 1040 ----- ------- END OF REPORT Martin Ferreira [facility] CYTOLOGY ORDERABLES F inal Result Performing Organization Address City/[facility]/ZIP Co de Phone Number [facility] [address] [place] [address] [phone] * HEPATITIS C AB W/REFL TO HCV RNA, QN, PCR (05/29/2021 11:45 AM EDT) HEPATITIS C ANTIBODY NON-REACT SHANIQUA NON-REACT SHANIQUA [facility] INDEX 0.02 <1.00 [facility] Comment: HCV antibody was non-reactive. There is no laboratory evidence of HCV infection. In most cases, no further action is required. However, if recent HCV exposure is suspected, a test for HCV RNA (test code 90314) is suggested. For additional information please refer to http://education.Temnos/faq/FOE95q0 (This link is being provided for informational/ educational purposes only.) 05/29/2021 11:4 5 AM EDT Maye YOUNG HISTORICAL/NON ORDERABLE LABS Final Result Performing Organization Address [facility] Co de Phone Number [facility] [address] * HIV 1/2 ANTIGEN/ANTIBODY,FOURTH GENERATION W/RFL (05/29/2021 11:14 AM EDT) HIV-1/2 ANTIGEN AND ANTIBODIES, 4TH GENERATION W/ REFLEX TNP [facility] Comment: TEST NOT PERFORMED Duplicate test. 05/29/2021 11:1 4 AM EDT Maye YOUNG LAB BLOOD ORDERABLES Final Res ult Performing Organization Address [facility] Co de Phone Number [facility] [address] from Last 3 Months or Most Recently Relevant to Health Maintenance Insurance [address] [id number] [place] [facility] MEDICAID STAND ADULT [address] Care Teams Clinical Nutrition Manager Relationship Specialty Start Date End Date Steven Pruitt MD [address] [place] [phone] PCP - General Internal Medicine 01/29/20
--- OUTSIDE RECORDS SUMMARY | 2025-06-16 10:08 | XMS_ITS | Encounter Summary ---
Author Organization [employer] Address [address] [place] [address] 7 [place] [address] Care Team Providers Care Chicken Cutter Name Role Phone Steven Pruitt MD Primary Care Prov ider Encounter Details Date Type Department Care Team ([facility] st Contact Info) Description 08/13/2022 Abstract [facility] ADULT DENTAL [address] [place] [address] Zia Kim [address] [place] [address] Social History Tobacco Use Types Packs/Day Years [...] on file documented as of this encounter Procedures Procedure Name Priority Date/Time Associated Diagnosis Comments 14 LARA COMPOSITE FILLING Routine 08/13/20 12:00 AM EST 15 LARA COMPOSITE FILLING Routine 08/13/20 12:00 AM EST 31 LO COMPOSITE FILLING Routine 08/13/20 12:00 AM EST 2 LO COMPOSITE FILLING Routine 12:00 AM EST 30 O AMALGAM FILLING Routine 08/13/2022 12:00 AM EST 19 O AMALGAM FILLING Routine 08/13/2022 12:00 AM EST 32 EXTRACTION Routine 08/13/2022 12:00 AM EST 17 EXTRACTION Routine 08/13/2022 12:00 AM EST 16 EXTRACTION Routine 08/13/2022 12:00 AM EST 1 EXTRACTION Routine 08/13/2022 12:00 AM EST documented in this encounter Visit Diagnoses Not on filedocumented in this encounter Care Teams Chicken Cutter Relationship Specialty Start Date End Date Steven Pruitt MD [address] [place] [phone] PCP - General Internal Medicine 01/29/20 documented as of this encounter
--- OUTSIDE RECORDS SUMMARY | 2025-06-16 10:08 | XMS_ITS | Clinical Summary ---
Author Organization [facility] Address [address] [place] [phone] Phone Care Team Providers Care Senior Quality Control Technician Name Role Phone Erin Alexander MD Primary [...] 59 08/21/2011 12:00 AM EST Temperature 36.4 C (97.6 F) 06/10/2013 12:00 AM EDT Respiratory Rate - - Oxygen Saturation - [...] 01/26/1996, Additional history exists Influenza Vaccines (#1) 2025 08/21/20, 08/25/2008, 07/24/2003, Additional history exists COVID-19 Vaccine (2024- season) 2025 Hepatitis B Vaccines Completed 05/11/1995, 02/23/1995, 1995 HIB Vaccines Completed 01/26/1996, 05/01, 02/23/1995, Additional history exists IPV Vaccines Completed 11/08/1998, 05/01, 02/23/1995, Additional history exists MMR Vaccines Completed 11/08/1998, 11/24/1995 Meningococcal Vaccine Aged Out 02/11/2007 No lizeth iban eligible based on patient's age to complete this topic HPV Vaccines Completed 09/06/2007, 12/2006, 02/11/2007 Varicella Vaccines Completed 10/24/2008, 08/10/2002 Hepatitis A Vaccines Aged Out No long er eligible based on patient's age to complete this topic Men B Vaccine Aged Out No longer elig ible based on patient's age to complete this topic Pneumococcal Vaccine Aged Out No long er eligible based on patient's age to complete this topic Care Teams Senior Quality Control Technician Relationship Specialty Start Date End Date Erin Alexander MD PCP - General 04/10/17
--- OUTSIDE RECORDS SUMMARY | 2025-06-16 10:08 | XMS_ITS | Encounter Summary ---
Author Organization [facility] Address [address] [place] [phone] Phone Care Team Providers Care Solvent Plant Treater Name Role Phone Erin Alexander MD Primary Care Provider Unavailabl e Encounter Details Date Type Department Care Team (Late st Contact Info) Description 09/26/2011 Documentation [facility] Family Medicine [address] [place] [address] Family Medicine, [place] [address] Social History Tobacco Use Types Packs/Day Years [...] on filedocumented in this encounter Care Teams Solvent Plant Treater Relationship Specialty Start Date End Date Erin Alexander MD PCP - General 04/10/17 documented as of this encounter
--- OUTSIDE RECORDS SUMMARY | 2025-06-16 10:08 | XMS_ITS | Encounter Summary ---
Author Organization [facility] Address [address] [place] [address] Phone Care Team Providers Care Financial Services Assistant Name Role Phone Erin Alexander MD Primary Care Provider Unavailabl e Encounter Details Date Type Department Care Team (Late st Contact Info) Description 04/16/2017 Conversion Encounter [facility] - [address] [address] Social History Tobacco Use Types Packs/Day Years [...] on filedocumented in this encounter Care Teams Financial Services Assistant Relationship Specialty Start Date End Date Erin Alexander MD PCP - General 04/10/17 documented as of this encounter
--- OUTSIDE RECORDS SUMMARY | 2025-06-16 10:08 | XMS_ITS | Encounter Summary ---
Author Organization [employer] Address [address] [place] [address] [address], [place] [address] Care Team Providers Care Regulatory Submissions Associate Name Role Phone Steven Pruitt MD Primary Care Prov ider Encounter Details Date Type Department Care Team ([facility] st Contact Info) Description 01/13/2023 Abstract [facility] CHC MED & PEDS [address] [place], [place] [phone] Steven Pruitt MD [address] [place] [address] Social History Tobacco Use Types Packs/Day Years [...] on filedocumented in this encounter Care Teams Regulatory Submissions Associate Relationship Specialty Start Date End Date Steven Pruitt MD [address] [place] [address] PCP - General Internal Medicine 01/29/20 documented as of this encounter
[2025-06-16 11:04] LABS: Appearance Urine Clear; Glucose Urine UA Negative (Negative); PH 6.5 (5.0-9.0); Specific Gravity - Urine 1.020 (1.005-1.025); UMIC TRIGGER UA YES
== END 2025-06-16 09:15 | disposition home or self-care (01) ==
LOC: HO.LAB 09:14
PROVIDERS: PCP Internal Medicine; Visit Provider Nurse Practitioner Family
DX: N39.0 Urinary tract infection, site not specified (principal)
CPT/HCPCS: 81001; 87086; 87088; 87186

== ENCOUNTER 2025-08-04 19:37 | Inpatient (IN) | payer MEDICAID, SELFPAY ==
[2025-08-04 19:52] VITALS: BP 111/67; PULSE 67; RESP 14; TEMP 36.5; O2SAT 100; BMI 24.4
--- OUTSIDE RECORDS SUMMARY | 2025-08-04 20:14 | XMS_ITS | Encounter Summary ---
Author Organization [employer] Address [address] [place] [address] [address], [place] [address] Care Team Providers Care Instrumental Teacher Name Role Phone Steven Pruitt MD Primary Care Prov ider Encounter Details Date Type Department Care Team (Late st Contact Info) Description 08/13/2022 Abstract [facility] ADULT DENTAL [address] [place] [address] [address] Social History Tobacco Use Types Packs/Day Years [...] Care Team (Late st Contact Info) Description 10/23/2025 8:45 AM EST Office Visit [facility] ADULT DENTAL [address] [place] [address] Kim Lizarraga [address] [place] [address] documented as of this encounter Procedures Procedure [...] on filedocumented in this encounter Care Teams Instrumental Teacher Relationship Specialty Start Date End Date Steven Pruitt MD [address] [place] [phone] PCP - General Internal Medicine 01/29/20 documented as of this encounter
--- OUTSIDE RECORDS SUMMARY | 2025-08-04 20:14 | XMS_ITS | Encounter Summary ---
Author Organization [facility] Address [address] [place] [phone] Phone Care Team Providers Care Data Integration Analyst Name Role Phone Erin Alexander MD Primary Care Provider Unavailabl e Encounter Details Date Type Department Care Team (Late st Contact Info) Description 09/26/2011 Documentation [facility] Family Medicine [address] [place] [address] Family Medicine, [place] [address] Social History Tobacco Use Types Packs/Day Years [...] on filedocumented in this encounter Care Teams Data Integration Analyst Relationship Specialty Start Date End Date Erin Alexander MD PCP - General 04/10/17 documented as of this encounter
--- OUTSIDE RECORDS SUMMARY | 2025-08-04 20:14 | XMS_ITS | Clinical Summary ---
Author Organization [facility] Address [address] [place] [phone] Phone Care Team Providers Care Gynecological Assistant Name Role Phone Erin Alexander MD [...] age to complete this topic Care Teams Gynecological Assistant Relationship Specialty Start Date End Date Erin Alexander MD PCP - General 04/10/17
--- OUTSIDE RECORDS SUMMARY | 2025-08-04 20:14 | XMS_ITS | Encounter Summary ---
Author Organization [employer] Address [address] [place] [address] Care Team Providers Care Field Marketing Team Leader Name Role Phone Steven Pruitt MD Primary Care Prov ider Encounter Details Date Type Department Care Team (Late Contact Info) Description 01/13/2023 Abstract [facility] CHC MED & PEDS [address] [place], [place] [phone] Steven Prutit MD [address] [place] [address] Social History Tobacco Use Types Packs/Day Years [...] Description 10/23/2025 8:45 AM EST Office Visit [facility] ADULT DENTAL [address] [place] [address] Zia, Kim [address] [place] [address] documented as of this encounter Visit Diagnoses Not on filedocumented in this encounter Care Teams Field Marketing Team Leader Relationship Specialty Start Date End Date Steven Pruitt MD [address] [place] [phone] PCP - General Internal Medicine 01/29/20 documented as of this encounter
--- OUTSIDE RECORDS SUMMARY | 2025-08-04 20:15 | XMS_ITS | Clinical Summary ---
Author Organization [employer] Address [address] [facility] 7[address] [place] [address] Care Team Providers Care Heavy Equipment Rental Manager Name Role Phone Steven Pruitt MD [...] Encounters Date Type Department Care Team Description 06/16/2025 Orders Only GENERIC EXTERNAL DATA DEPARTMENT Provider, Generic External Data 06/06/2025 Telephone [facility] [address] [place] [address] Steven Pruitt MD from Last 3 Months Social History Tobacco [...] Description 10/23/2025 8:45 AM EST Office Visit [facility] [address] [place] [address] Kim Lizarraga [address] [place] [address] Health Maintenance Due Date Last Done Comments Disability Screening 1994 Alcohol/Substance Use Screening 2006 Pneumococcal Vaccine: Pediatrics (0 to 5 Years) and At-Risk Patients (6 to 49) Years (1 of 2 - PCV) 2013 SDOH Screening 10/07/2024 10/07/2023 Depression Screening 10/14/2024 10/14/2023, 10/14/19 24 Dental X-Ray: [facility] 11/03/2024 11/03/2023, 09/11 COVID-19 [...] Procedure Name Priority Date/Time Associated Diagnosis Comments URINALYSIS, COMPLETE (INCLUDES MACRO AND MICRO) Routine 06/16/2025 9:39 AM EDT CULTURE, URINE, ROUTINE Routine 06/16/2025 9:39 AM EDT PROPHYLAXIS - ADULT Routine 04/20/2025 8 :00 AM EDT PERIODIC ORAL EVALUATION - ESTABLISHED [...] Recently Relevant to Health Maintenance Results * (ABNORMAL) Urinalysis Complete (06/16/2025 9:39 AM EDT) Color Urine Yellow [facility] Appearance Urine Clear [facility] PH 6.5 5.0 - 9.0 [facility] Glucose Urine UA Negative Negative mg/dL [facility] Urine Blood Negative Negative [facility] Specific Newcomb - Urine 1.020 1.005 - 1.025 [facility] Urine Protein Negative Neg-Trace mg/dL [facility] Urine Ketones Negative Negative mg/dL [facility] Nitrite Urine Negative Negative [facility] Leukocyte Esterase Urine Moderate (2+)(A) Negative [facility] RBC Urine 0-2 0 - 2 /HPF [facility] Urine WBC 21-50 0 - 5 /HPF [facility] Urine Squamous Epithelial Cell 3-5 0 - 2 /HPF [facility] Urine Bacteria 1+ None Seen [facility] Hyaline Casts, Urine 0-2 0 - 2 /LPF [facility] 06/16/2025 9:39 AM EDT 06/16/2025 10:00 AM EDT us Generic External Data Provider LAB URINE ORDERAB LES Final Result Performing Organization Address City/State/[facility] Co de Phone Number [facility] [address] [place] [phone] * Culture, Urine, Routine (06/16/2025 9:39 AM EDT) Urine Urine specimen obtained by clean catch procedure / Unknown 06/16/2025 9:39 AM EDT 06/16/2025 10:00 AM EDT Comment:UACC Narrative [facility] - 06/18/2025 8:00 AM EDT Staphylococcus saprophyticus Quant > 100,000 cfu/mL Staphylococcus saprophyticus: Clindamycin >=8(R) Staphylococcus saprophyticus: Erythromycin >=8(R) Staphylococcus saprophyticus: Nitrofurantoin <=16(S) Staphylococcus saprophyticus: Oxacillin 0.5(S) Staphylococcus saprophyticus: Penicillin-G 0.12(R) Staphylococcus saprophyticus: Tetracycline <=1(S) Staphylococcus saprophyticus: Trimethoprim/Sulfamethoxazole <=10(S) Specimen Source: Urine clean catch Generic External Data Provider LAB MICROBIOLOGY - GENERAL ORDERABLES Final Result Performing Organization Address [facility]/ZIP Co de Phone Number [facility] [address] [place] [phone] * HPV DNA, Low/High Risk (01/12/2025 2:00 PM EDT) [facility] HPV High Risk Negative Negative [facility] HPV Genotype 16 Negative Negative [facility] HPV Genotype 18 Negative Negative [facility] Comment:HPV testing performe d at [facility] (CLIA#[id number]), [address] [place] [address].Testing for HPV was performed using the Sandra ANIYAH 6800system. The presence of HPV in the female [...] 2:00 PM EDT 01/13/2025 9:40 AM EDT Martin YEE LAB BLOOD ORDERABLES Avelina l Result Performing Organization Address [facility] Co de Phone Number [facility] [address] [place] [phone] * Pap Smear (01/12/2025 2:00 PM EDT) Swab Cervix uteri structure / Unknown 01/12/2025 2:00 PM EDT 01/13/2025 9:40 AM EDT [facility] - 01/18/2025 10:40 AM EDT ----- ------- Name: Hattie Potts Age/Sex: 29/F : 1995 Unit#: [id number] Attend Dr: MARTIN FERREIRA CNM Re01/12/25 Status: DEP [facility] Disch: ----- ------- SPEC : [id number] RECD: 01/13/2540 STATUS: RENETTA HILARIO NUM: [id number] MARTÍN: 01/12/25-[address]: MARTIN FERREIRA CNM ENTERED: 01/13/251047 SP TYPE: Pap Smr OT DR: ORDERED: Pap Smear Interpretation Satisfactory for evaluation. Negative for intraepithelial lesion or malignancy. No endocervical cells seen. HPV High Risk: Negative HPV Genotyping 16: Negative HPV Genotyping 18: Negative Clinical Information LMP: Unknown date Previous PAP test: Last PAP NIL 2019 Other history: LSIL 2018 Material Received ThinPrep-Cervical ----- ------- Signed (signature on file) Augustina Carpenter CT ([facility]) 01/18/25 1040 ----- ------- END OF REPORT Martin Ferreira CN LAB CYTOLOGY ORDERABLES F inal Result Performing Organization Address [facility]/ZIP Co de Phone Number [facility] [address] [place] [phone] * HEPATITIS C AB W/REFL TO HCV RNA, QN, PCR (05/29/2021 11:45 AM EDT) HEPATITIS C ANTIBODY NON-REACT SHANIQUA NON-REACT SHANIQUA [facility] INDEX 0.02 <1.00 [facility] Comment: HCV antibody was non-reactive. There is no laboratory evidence of HCV infection. In most cases, no further action is required. However, if recent HCV exposure is suspected, a test for HCV RNA (test code 47338) is suggested. For additional information please refer to http://education.Stakeforce.ServiceTrade/faq/WQY13v0 (This link is being provided for informational/ educational purposes only.) 05/29/2021 11:4 5 AM EDT Maye KNOXP HISTORICAL/NON ORDERABLE LABS Final Result [facility] [address] [place] [address], * HIV 1/2 ANTIGEN/ANTIBODY,FOURTH GENERATION W/RFL (05/29/2021 11:14 AM EDT) HIV-1/2 ANTIGEN AND ANTIBODIES, 4TH GENERATION W/ REFLEX TNP [facility] Comment: TEST NOT PERFORMED Duplicate test. 05/29/2021 11:1 4 AM EDT us Maye Saab MACHINE GUIDE BASE WINDER LAB BLOOD ORDERABLES Final Res ult [facility] [address] from Last 3 Months or Most Recently Relevant to Health Maintenance Insurance C3 DENTAL-[facility] MEDICAID STAND ADULT Care Teams Heavy Equipment Rental Manager Relationship Specialty Start Date End Date Steven Pruitt MD [address] [place] [phone] PCP - General Internal Medicine 01/29/20
--- OUTSIDE RECORDS SUMMARY | 2025-08-04 20:15 | XMS_ITS | Encounter Summary ---
Author Organization [employer] Address [address] [address] Care Team Providers Care Lever Tender Name Role Phone Steven Pruitt MD Primary Care Prov ider Reason for Visit * Reason Onset Date Comments Appointment Request 10/02/2023 Encounter Details Date Type Department Care Team ([facility] st Contact Info) Description 10/02/2023 Telephone [facility] [address] [place] [phone] Steven Pruitt MD [address] [place] [address] Appointment Request Social History Tobacco Use Types [...] AM EST Tc from pt returning call. Washer Assembler booked pt for 10/14/23 for OV [...] Description 10/23/2025 8:45 AM EST Office Visit [facility] [address] [place] [address] Zia, Kim [address] [place] [address] documented as of this encounter Visit Diagnoses Not on filedocumented in this encounter Care Teams Lever Tender Relationship Specialty Start Date End Date Steven Pruitt MD [address] [place] [phone] PCP - General Internal Medicine 01/29/20 documented as of this encounter
--- OUTSIDE RECORDS SUMMARY | 2025-08-04 20:15 | XMS_ITS | Encounter Summary ---
Author Organization [facility] Address [address] [place] [address] Phone Care Team Providers Care Avionics Repair Technician Name Role Phone Erin Alexander MD Primary Care Provider Unavailabl e Encounter Details Date Type Department Care Team (Late st Contact Info) Description 04/16/2017 Conversion Encounter [facility] - [address] [phone] Social History Tobacco Use Types Packs/Day Years [...] on filedocumented in this encounter Care Teams Avionics Repair Technician Relationship Specialty Start Date End Date Erin Alexander MD PCP - General 04/10/17 documented as of this encounter
--- NOTE | 2025-08-04 20:31 | PC.NURSE ---
pt biba from home, a&ox4, respirations even and unlabored. pt mother called PD as pt was making SI statements. pt reports increased depression for a while and is now reporting SI thoughts without plan at this time. pt tearful at time of triage. pt chnaged into safety attire and belongings placed in [place]. vss, denies HI
[2025-08-04 20:35] LABS: MANUAL DIFF FLAG NO
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
[2025-08-04 20:46] LABS: Hematocrit 33.9 % (37.0-47.0); Hemoglobin 11.5 g/dl (12.0-16.0); Imm Gran Abs Auto 0.02 X10*3/uL (0.00-0.03); Imm Gran Pct Auto 0.3 % (0.0-0.4); Lymphocytes Absolute Auto 1.9 X10*3/uL (1.2-4.9); Mean Corpuscular HGB Conc 33.9 g/dl (31.0-35.0); Mean Corpuscular Hemoglobin 26.9 pg (27.0-33.0); Mean Corpuscular Volume 79.2 fL (80.0-98.0); NRBC Abs Auto 0.000 X10*3/uL (0.0-0.012); NRBC Pct Auto 0.0 /100WBC (0.0-0.2); Platelet Count 283 X10*3/uL (160-400); Red Blood Count 4.28 X10*6/uL (4.20-5.50); White Blood Count 7.4 X10*3/uL (4.8-10.8)
[2025-08-04 20:49] LABS: COVID-19 Test Negative (Negative); IDNOW Serial# 55D5AD1C
[2025-08-04 21:01] LABS: Acetaminophen LAB < 3 mcg/mL (<30); Alanine Aminotransferase 12 U/L (0-31); Albumin Level 4.2 g/dL (3.5-5.0); Alkaline Phosphatase 43 U/L (39-117); Anion Gap 10 (12-20); Aspartate Amino Transferase 21 U/L (5-31); Blood Urea Nitrogen 9 mg/dL (9-16); Calcium 9.1 mg/dL (8.4-10.2); Carbon Dioxide 25 mmol/L (22-29); Chloride 110 mmol/L (96-108); Creatinine Clr Calc Pharmacy 96.7; Estimated Glomerular Filt Rate > 60; Potassium 3.6 mmol/L (3.3-5.1); Salicylate < 5.0 mg/dL (15-30); Sodium 141 mmol/L (135-145); Total Protein 6.6 g/dL (6.5-8.0)
[2025-08-04 21:09] LABS: Appearance Urine Cloudy; Glucose Urine UA Negative (Negative); PH 7.0 (5.0-9.0); Specific Gravity - Urine 1.015 (1.005-1.025); UPreg QC Valid YES
[2025-08-04 21:15] LABS: Cannabinoid Screen Urine Not Detected (Not Detect)
[2025-08-04 22:10] VITALS: BP 109/69; PULSE 75; RESP 16; TEMP 36.6; O2SAT 99
--- NOTE | 2025-08-04 23:36 | PC.NURSE ---
Verbal report received from Valeria VARGHESE. floor covering installer completed in the Main. Patient belongings brought home by sister. When questioned on reasoning for visit, patient stated I can't handle change and a lot has been happening. I get depressed like this. Patient reports she endorsed +SI to mom with plan to cut self and she called 911. Denies HI/AVH. Agreeable to alert staff if feeling unsafe. No medications. Gluten free meal tray ordered. 15 minute safety checks initiated. Continue plan of care.
--- NOTE | 2025-08-05 | PC.NURSE ---
Late entry 23:30 - Patient reports she is exhausted, but unable to sleep. Also reports 5/10 pounding BREWER. Requesting Tylenol and Melatonin. MD Hendrickson made aware, awaiting orders...
--- NOTE | 2025-08-05 02:42 | ECG_ITS ---
Test Reason : QRS Blood Pressure : */* mmHG Vent. Rate : 68 BPM Atrial Rate : 68 BPM P-R Int : 132 ms QRS Dur : 84 ms QT Int : 420 ms P-R-T Axes : 74 64 39 degrees QTcB Int : 446 ms Normal sinus rhythm Normal ECG No previous ECGs available Referred By: Tara Shoemaker Electronically Signed By: ZEV GARZA
[2025-08-05 06:38] VITALS: BP 91/59; PULSE 72; RESP 16; TEMP 36.5; O2SAT 99
--- NOTE | 2025-08-05 08:23 | PC.NURSE ---
Assumed care, report received. Pt is currently sleeping. safety maintained.
[2025-08-05 14:00] VITALS: BP 102/67; PULSE 67; RESP 14; TEMP 36.5; O2SAT 99
--- NOTE | 2025-08-05 16:25 | PHA.MEDREC ---
Pharmacy Consult ? Medication Reconciliation Pharmacy has completed the medication reconciliation. Confirmed with Marquita Franco, attending RN, that patient claims to be on no home medications.
--- NOTE | 2025-08-05 18:34 | PC.NURSE ---
Pt is quiet and stays in her room most of the shift. She has multiple visitors, including her mother and sister. SHe showers and naps during the shift.
[2025-08-05 22:00] VITALS: BP 104/64; PULSE 64; RESP 18; TEMP 36.4; O2SAT 100
[2025-08-06 06:36] VITALS: BP 96/61; PULSE 58; RESP 18; TEMP 36.1; O2SAT 99
--- NOTE | 2025-08-06 07:28 | PC.NURSE ---
Assumed care, report received. Pt is awake, she eats breakfast and goes back to sleep.
[2025-08-06 16:13] VITALS: BP 103/62; PULSE 58; RESP 18; O2SAT 98
--- NOTE | 2025-08-06 20:34 | MHC.EDTECH ---
patient took a shower
--- NOTE | 2025-08-06 21:06 | MHC.CARE ---
Pt remains appropriate for IPLOC. Discussed with ED provider.
--- NOTE | 2025-08-06 22:19 | PC.NURSE ---
Pt has remained isolative, she has had family visiting and spent time napping.
[2025-08-07 06:00] VITALS: BP 111/63; PULSE 68; RESP 16; TEMP 36.4; O2SAT 98
--- NOTE | 2025-08-07 07:23 | PC.NURSE ---
Assumed care, report received. Pt is awake, she is sitting in her room watching TV. she remains calm, quiet and tearful at times.
[2025-08-07 16:52] VITALS: BP 143/76; PULSE 60; RESP 16; TEMP 36.7; O2SAT 99
[2025-08-07 17:08] VITALS: BMI 21.3
--- NOTE | 2025-08-07 17:27 | PC.NURSE ---
08/07/25 pt declined the flu shot.
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
[2025-08-07 20:00] VITALS: BP 120/85; PULSE 73; RESP 16; TEMP 36.6; O2SAT 97
[2025-08-08 08:00] VITALS: BP 105/69; PULSE 64; RESP 16; TEMP 36.4; O2SAT 99
[2025-08-08 08:16] LABS: Alanine Aminotransferase 12 U/L (0-31); Albumin Level 4.3 g/dL (3.5-5.0); Alkaline Phosphatase 41 U/L (39-117); Anion Gap 9 (12-20); Aspartate Amino Transferase 20 U/L (5-31); Blood Urea Nitrogen 13 mg/dL (9-16); Calcium 9.3 mg/dL (8.4-10.2); Carbon Dioxide 28 mmol/L (22-29); Chloride 107 mmol/L (96-108); Cholesterol 148 mg/dL (<200); Creatinine Clr Calc Pharmacy 94.7; Estimated Glomerular Filt Rate > 60; HDL Cholesterol 46 mg/dL (>40); Magnesium 2.2 mg/dL (1.6-2.6); Potassium 4.4 mmol/L (3.3-5.1); Sodium 140 mmol/L (135-145); Total Protein 6.9 g/dL (6.5-8.0); Triglycerides 47 mg/dL (<150)
[2025-08-08 08:34] LABS: Free T4 (Free Thyroxine) 1.04 ng/dL (0.71-1.85); Thyroid Stimulating Hormone 2.15 uIU/mL (0.32-4.0)
[2025-08-08 08:46] LABS: Folate 7.8 ng/mL (> or = 4.0); Vitamin B12 557 pg/mL (200-900)
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
[2025-08-08] MEDS: Milk of Magnesia 30 ML ORAL.SUSP PO (09:10)
--- NOTE | 2025-08-08 14:08 | MHC.CLN ---
CONSULT HT 5'4 WT 56.2KG BMI 21 PT IS 103% IBW INDICATES ADEQUATE WT FOR HT REVIEWED LABS AND MEDICAL HX-UNREMARKABLE DIET RX: GLUTEN FREE-PT REPORTS ALLERGY TO GLUTEN KITCHEN AWARE MONITOR PO INTAKE CONTINUE CURRENT CARE PLAN
--- NOTE | 2025-08-08 15:31 | P.CONHOSP_ITS ---
History of Present Illness Data of Consult Service Date: 08/08/25 Primary Care Provider: Unknown Physician HPI Reason for consult: Medical consult 29-year-old female presented to the ED with suicide ideation. Patient has a history of intense emotional episodes, this incident was precipitated by arrest and a court hearing, she was released to her mother's custody after which she was witnessed to have grabbed a knife and pressed against her wrists without breaking the skin. She presented to the ED after EMS was called. Patient has no psychiatric history. In the emergency department her initial workup revealed no leukocytosis and mild anemia. Metabolic panel without evidence of electrolyte imbalances, liver or renal dysfunction. Urine without evidence of infection, negative alcohol, negative tox screen. On exam she has no medical concerns. Her vitals are stable. Review of Systems 2 Review of Systems: Denies any shortness of breath, chest pain, headaches, dysuria, abdominal pain or discomfort, nausea, vomiting or diarrhea. Denies fever or chills. PMFSH Medical History Recurrent UTI Social History Household Members: Family Housing: House Do you presently have visiting nurse or other home services: No Patient Tobacco Use Status: Never used Tobacco Smoked in Last 30 Days: No e-Cigarette/Vaping Use: Never Used Use of substances other than those prescribed or required for medical reasons: No Currently Displaying Signs/Symptoms of Drug Intoxication Withdrawal: No Have you been hit, kicked, punched, or otherwise hurt by someone within the past year? If so, by whom?: No Do you feel safe in your current relationship?: Yes Is there a partner from a previous relationship who is making you feel unsafe now?: No Advance Directives: No Advance Directives Information Provided: No Do you have thoughts of harming others: None Do you have a plan to hurt others: No Plan Recently lost weight without trying: Unsure How much weight loss: 2-13 pounds Eating poorly because of decreased appetite: Yes Nutrition screen score: 4 Nutrition Risks: No Nutritional Risk Patient : No : No Poor oral hygiene: No service: No Sexual orientation: Straight/Heterosexual Meds Allergies Allergy/AdvReac Type Severity Reaction Status Date / Time gluten Allergy Stomach Verified 08/04/25 23:56 Upset Active Medications: Current Medications Acetaminophen (Acetaminophen 325 Mg Tablet) 650 mg PO Q6H PRN PRN Reason: Headache/Pain, Scale 1-10 Al Hydroxide/Mg Hydroxide (Magnesium Hydrox/Alum Hydrox 30 Ml Oral.Susp) 30 ml PO Q6H PRN PRN Reason: Heartburn/Nausea Hydroxyzine HCl (Hydroxyzine Hcl 25 Mg Tablet) 25 mg PO Q6H PRN PRN Reason: mild anxiety Magnesium Hydroxide (Milk Of Magnesia 30 Ml Oral.Susp) 30 ml PO DAILY PRN PRN Reason: Constipation Last Admin: 08/08/25 09:10 Dose: 30 ml Melatonin (Melatonin 3 Mg Tablet) 6 mg PO BEDTIME BRADY Last Admin: 08/07/25 21:23 Dose: 6 mg Nicotine (Nicotine 21 Mg Patch.Td24) 21 mg TRANSDERMA DAILY PRN PRN Reason: nicotine craving Nicotine Polacrilex (Nicotine Polacrilex 2 Mg Gum) 2 mg BUCCAL Q2H PRN PRN Reason: Nicotine Cravings Olanzapine (Olanzapine 5 Mg Tablet) 5 mg PO BID PRN PRN Reason: agitation Trazodone HCl (Trazodone Hcl 50 Mg Tablet) 50 mg PO BEDTIME MRX1 PRN PRN Reason: Insomnia Home Medications ?Medication ?Instructions ?Recorded ?Confirmed ?Last Taken ?Type No Known Home Meds 08/05/25 08/05/25 Un known History Physical Exam 2 Vital Signs and Narrative: Vital Signs: Last Vital Signs Temp 97.5 F 08/08/25 08:00 Pulse 64 08/08/25 08:00 Resp 16 08/08/25 08:00 BP 105/69 08/08/25 08:00 Pulse Ox 99 08/08/25 08:00 O2 Del Method Room Air 08/08/25 08:00 BMI result Body Mass Index 21.3 Alert and oriented X3, calm and cooperative. Answers questions. Neuro: CN II-X11 intact, no deficits, visual acuity intact EYES: PERRLA, EOM intact ENT: Hearing intact, MMM Cardiac: S1 S2 RRR, No ectopy Pulmonary: lungs clear to auscultation, No increased WOB. Abdominal: BS active in all 4 quadrants, no guarding or tenderness MSK: Strength 5/5 upper and lower extremities. Ambulates with steady gait. : Deferred Extremities: No edema in lower extremities Psych: Mood stable, Quiet and cooperative. Skin: Warm and dry, Intact Results Labs 08/04/25 20:27 08/08/25 07:31 Labs: Laboratory Results - last 24 hr 08/08/25 08/08/25 07:31 07:32 Anion Gap 9 L Estim Creat Clear Calc 94.7 Estimated GFR > 60 Random Glucose 86 Estimat Average Glucose 88 Hemoglobin A1c % 4.7 Calcium 9.3 Magnesium 2.2 Total Bilirubin 0.4 AST 20 ALT 12 Alkaline Phosphatase 41 Total Protein 6.9 Albumin 4.3 Triglycerides 47 Cholesterol 148 LDL Cholesterol, Calc 93 HDL Cholesterol 46 Vitamin B12 557 Folate 7.8 TSH 2.15 Free T4 1.04 Assessment and Plan (1) Suicidal ideation: Status: Acute Plan 29-year-old with no significant past medical history presented to the ED after suicide attempt with a knife. Now admitted for inpatient stabilization Suicide ideation Treatment per psychiatric team Thank you for allowing me to participate in the care of this patient. Will follow with you, please notify medical provider with any changes in condition or concerns.
[2025-08-08 20:00] VITALS: BP 115/76; PULSE 68; RESP 16; TEMP 36.9; O2SAT 98
[2025-08-09 08:00] VITALS: BP 99/60; PULSE 62; RESP 20; TEMP 36.5; O2SAT 98
--- NOTE | 2025-08-09 09:34 | HO.PSYCHPN ---
Subjective Subjective Date of Service: 08/09/25 Reason For Visit: SI/ SIB Subjective Notes: Conditional Voluntary Interim History: Active on unit. attending groups. Tearful when talking about her relationship. She reports her visit went well with her mother yesterday. She states she is no longer feeling suicidal; pt stated, I prayed last night and I shouldn't feel like wanting to kill myself. I want to have children. I've always wanted to be a mother . Pt reports sleeping well last night. denies any side effects from medications. Continue tx plan. Medication Compliance: Yes Side effects from medications: No Attending Groups: Yes Mental Status Exam Mental Status Exam Narrative: Pt is alert and oriented; behavior is cooperative, tearful; dressed in casual attire; mood is described as depressed and anxious ; eye contact appropriate; Speech is normal rate, volume and not pressured; thought process is organized, future oriented; Thought content is on tx; denies SI/HI/VH/AH. Diagnostics Vital Signs (24Hr): Vital Signs - 24 hr 08/08/25 20:00 08/09/25 08:00 Temperature 98.4 F 97.7 F Pulse Rate 68 62 Respiratory Rate 16 20 Blood Pressure 115/76 99/60 Pulse Oximetry 98 98 Oxygen Delivery Method Room Air Room Air BMI result Body Mass Index 21.3 Labs 08/04/25 20:27 08/08/25 07:31 Labs: Laboratory Results - last 48 hr 08/08/25 08/08/25 07:31 07:32 Sodium 140 Potassium 4.4 D Chloride 107 Carbon Dioxide 28 Anion Gap 9 L BUN 13 Creatinine 0.75 Estim Creat Clear Calc 94.7 Estimated GFR > 60 Random Glucose 86 Estimat Average Glucose 88 Hemoglobin A1c % 4.7 Calcium 9.3 Magnesium 2.2 Total Bilirubin 0.4 AST 20 ALT 12 Alkaline Phosphatase 41 Total Protein 6.9 Albumin 4.3 Triglycerides 47 Cholesterol 148 LDL Cholesterol, Calc 93 HDL Cholesterol 46 Vitamin B12 557 Folate 7.8 TSH 2.15 Free T4 1.04 Medications Medications Current Medications Acetaminophen (Acetaminophen 325 Mg Tablet) 650 mg PO Q6H PRN PRN Reason: Headache/Pain, Scale 1-10 Al Hydroxide/Mg Hydroxide (Magnesium Hydrox/Alum Hydrox 30 Ml Oral.Susp) 30 ml PO Q6H PRN PRN Reason: Heartburn/Nausea Hydroxyzine HCl (Hydroxyzine Hcl 25 Mg Tablet) 25 mg PO Q6H PRN PRN Reason: mild anxiety Magnesium Hydroxide (Milk Of Magnesia 30 Ml Oral.Susp) 30 ml PO DAILY PRN PRN Reason: Constipation Last Admin: 08/08/25 09:10 Dose: 30 ml Melatonin (Melatonin 3 Mg Tablet) 6 mg PO BEDTIME BRADY Last Admin: 08/08/25 21:40 Dose: Not Given Nicotine (Nicotine 21 Mg Patch.Td24) 21 mg TRANSDERMA DAILY PRN PRN Reason: nicotine craving Nicotine Polacrilex (Nicotine Polacrilex 2 Mg Gum) 2 mg BUCCAL Q2H PRN PRN Reason: Nicotine Cravings Olanzapine (Olanzapine 5 Mg Tablet) 5 mg PO BID PRN PRN Reason: agitation Sertraline HCl (Sertraline Hcl 25 Mg Tablet) 25 mg PO BEDTIME BRADY Last Admin: 08/08/25 21:17 Dose: 25 mg Trazodone HCl (Trazodone Hcl 50 Mg Tablet) 50 mg PO BEDTIME MRX1 PRN PRN Reason: Insomnia Last Admin: 08/08/25 21:17 Dose: 50 mg Allergies Allergies Allergy/AdvReac Type Severity Reaction Status Date / Time gluten Allergy Stomach Verified 08/04/25 23:56 Upset Assessment & Plan Assessment & Plan (1) MDD (major depressive disorder), recurrent episode: Status: Acute Code(s): F33.9 - Major depressive disorder, recurrent, unspecified (2) PTSD (post-traumatic stress disorder): Status: Acute Code(s): F43.10 - Post-traumatic stress disorder, unspecified Plan Patient is a 29-year-old female with hx of MDD, PTSD, who was brought to ER via ambulance due to suicidal ideation and suicide gesture to slit her wrists with a kitchen knife secondary to increased life stressors. Plan: CV 15 minute safety checks Obtain collateral Start: Zoloft 25mg PO bedtime enourage groups referral to outpatient psychaitric provider ?referral to [facility] discharge planning 08/09: Active on unit. attending groups. Tearful when talking about her relationship. She reports her visit went well with her mother yesterday. She states she is no longer feeling suicidal; pt stated, I prayed last night and I shouldn't feel like wanting to kill myself. I want to have children. I've always wanted to be a mother . Pt reports sleeping well last night. denies any side effects from medications. Continue tx plan. Patient educated on: diagnosis and medication risk/benefits Reason for continued inpatient stay Substantial Risk for: med/psych decompensation Time Spent With Patient Time: Total time managing care of this patient today _20___ minutes.
[2025-08-09 20:00] VITALS: BP 110/71; PULSE 68; RESP 15; TEMP 36.2; O2SAT 99
--- NOTE | 2025-08-10 | ECG_ITS ---
Test Reason : chest pain Blood Pressure : */* mmHG Vent. Rate : 65 BPM Atrial Rate : 65 BPM P-R Int : 144 ms QRS Dur : 90 ms QT Int : 438 ms P-R-T Axes : 77 65 42 degrees QTcB Int : 455 ms Normal sinus rhythm Normal ECG When compared with ECG of 05-Aug-2025 16:03, No significant change was found Referred By: Juventino Gary Electronically Signed By: DEWEY COBB MD
[2025-08-10 04:00] VITALS: BP 95/66; PULSE 60; RESP 18; TEMP 37.1; O2SAT 98
[2025-08-10 04:10] VITALS: BP 110/62; PULSE 68; RESP 16; O2SAT 98
--- NOTE | 2025-08-10 04:34 | PM.EVENT ---
Event Note Date of Service: 08/10/25 Event Note: 4:06 a.m. S/O: Contacted to report that patient is experiencing sudden onset severe epigastric pain, temperature changes to her face, nausea, feeling of passing out and palpitation. VS: BP 95/66, HR 60 bpm, oxygen saturation 90% on room air, temp 98.7 degrees On my arrival to the unit pt was sitting and looking very anxious. She was starting to feel better. Denied events of vomiting. She attributes these symptoms to Dulcolax which she was started tonight to help with constipation. Cardiopulmonary exam is unremarkable. Abdominal exam significant for showed epigastric tenderness without rebound. She is at the end of her menstrual cycle. A/P: Suspecting abdominal pain/colic secondary to medication. Rule out pancreatitis. 1. Toradol 15 mg IM X1. 2. Simethicone 80 mg PO. 3. Check ECG 4. Check Labs: CBC, CMP, lipase and troponin. 5. Hold dulcolax. Time Spent With Patient Time: Total time managing care of this patient today ____ minutes.
[2025-08-10 04:43] LABS: MANUAL DIFF FLAG NO
[2025-08-10 04:44] LABS: Hematocrit 38.1 % (37.0-47.0); Hemoglobin 12.9 g/dl (12.0-16.0); Imm Gran Abs Auto 0.01 X10*3/uL (0.00-0.03); Imm Gran Pct Auto 0.1 % (0.0-0.4); Lymphocytes Absolute Auto 3.2 X10*3/uL (1.2-4.9); Mean Corpuscular HGB Conc 33.9 g/dl (31.0-35.0); Mean Corpuscular Hemoglobin 26.8 pg (27.0-33.0); Mean Corpuscular Volume 79.0 fL (80.0-98.0); NRBC Abs Auto 0.000 X10*3/uL (0.0-0.012); NRBC Pct Auto 0.0 /100WBC (0.0-0.2); Platelet Count 286 X10*3/uL (160-400); Red Blood Count 4.82 X10*6/uL (4.20-5.50); White Blood Count 7.1 X10*3/uL (4.8-10.8)
[2025-08-10 04:56] LABS: Alanine Aminotransferase 12 U/L (0-31); Albumin Level 4.6 g/dL (3.5-5.0); Alkaline Phosphatase 47 U/L (39-117); Anion Gap 14 (12-20); Aspartate Amino Transferase 18 U/L (5-31); Blood Urea Nitrogen 14 mg/dL (9-16); Calcium 9.3 mg/dL (8.4-10.2); Carbon Dioxide 24 mmol/L (22-29); Chloride 105 mmol/L (96-108); Creatinine Clr Calc Pharmacy 97.2; Estimated Glomerular Filt Rate > 60; Lipase 17 U/L (8-78); Magnesium 2.1 mg/dL (1.6-2.6); Potassium 3.7 mmol/L (3.3-5.1); Sodium 139 mmol/L (135-145); Total Protein 7.2 g/dL (6.5-8.0)
[2025-08-10 05:02] LABS: Troponin-I High Sensitivity < 2.7 ng/L (<3.5-17.0)
--- NOTE | 2025-08-10 05:03 | PC.NURSE ---
08/10/25 0400 pt stated she felt dizzy and felt like she was going to pass out with cramping pain 03/09 in epi gastric area. VSS. Thuy alexander [employer] and hospitalist Dr. larry ely notified, ekg perfomed and labs, hospitalist evaluated her. Pt reported I feel a lot better. pain come and goes down to a 3. Pt declined tordal IM.
[2025-08-10 07:00] VITALS: BMI 21.5
[2025-08-10 07:47] VITALS: BP 110/60; PULSE 60; RESP 20; TEMP 36.7; O2SAT 98
--- NOTE | 2025-08-10 08:42 | HO.PM.IMPN ---
Subjective Subjective Date of Service: 08/10/25 Interval History: Follow up abdominal pain Physical Exam Vital Signs: Vital Signs: Last Vital Signs Temp 98.1 F 08/10/25 07:47 Pulse 60 08/10/25 07:47 Resp 20 08/10/25 07:47 BP 110/60 08/10/25 07:47 Pulse Ox 98 08/10/25 07:47 O2 Del Method Room Air 08/10/25 07:47 BMI result Body Mass Index 21.3 Objective Data Active Medications Acetaminophen (Acetaminophen 325 Mg Tablet) 650 mg PO Q6H PRN PRN Reason: Headache/Pain, Scale 1-10 Al Hydroxide/Mg Hydroxide (Magnesium Hydrox/Alum Hydrox 30 Ml Oral.Susp) 30 ml PO Q6H PRN PRN Reason: Heartburn/Nausea Bisacodyl (Bisacodyl 5 Mg Tablet.Dr) 5 mg PO BEDTIME BRADY On Hold: 08/10/25 04:42 Last Admin: 08/09/25 21:41 Dose: 5 mg Documented By: ROJELIO Hydroxyzine HCl (Hydroxyzine Hcl 25 Mg Tablet) 25 mg PO Q6H PRN PRN Reason: mild anxiety Magnesium Hydroxide (Milk Of Magnesia 30 Ml Oral.Susp) 30 ml PO DAILY PRN PRN Reason: Constipation Last Admin: 08/08/25 09:10 Dose: 30 ml Documented By: RAFA Melatonin (Melatonin 3 Mg Tablet) 6 mg PO BEDTIME BRADY Last Admin: 08/09/25 21:42 Dose: Not Given Documented By: ROJELIO Non-Admin Reason: Patient Refused Nicotine (Nicotine 21 Mg Patch.Td24) 21 mg TRANSDERMA DAILY PRN PRN Reason: nicotine craving Nicotine Polacrilex (Nicotine Polacrilex 2 Mg Gum) 2 mg BUCCAL Q2H PRN PRN Reason: Nicotine Cravings Olanzapine (Olanzapine 5 Mg Tablet) 5 mg PO BID PRN PRN Reason: agitation Sertraline HCl (Sertraline Hcl 25 Mg Tablet) 25 mg PO BEDTIME BRADY Last Admin: 08/09/25 21:40 Dose: 25 mg Documented By: ROJELIO Trazodone HCl (Trazodone Hcl 50 Mg Tablet) 50 mg PO BEDTIME MRX1 PRN PRN Reason: Insomnia Last Admin: 08/09/25 21:40 Dose: 50 mg Documented By: ROJELIO Labs 08/10/25 04:36 08/10/25 04:36 Labs: Laboratory Results - last 24 hr 08/10/25 04:36 MCV 79.0 L MCH 26.8 L MCHC 33.9 RDW 12.9 Plt Count 286 MPV 10.7 Immature Gran % (Auto) 0.1 Neut % (Auto) 45.3 Lymph % (Auto) 44.5 H Tompkins % (Auto) 7.3 Eos % (Auto) 2.0 Baso % (Auto) 0.8 Lymph # (Auto) 3.2 Tompkins # (Auto) 0.5 Eos # (Auto) 0.1 Baso # (Auto) 0.1 Abs Immat Gran (auto) 0.01 Absolute Neuts (auto) 3.2 Absolute Nucleated RBC 0.000 Nucleated RBC % (auto) 0.0 Anion Gap 14 Estim Creat Clear Calc 97.2 Estimated GFR > 60 Random Glucose 112 Calcium 9.3 Magnesium 2.1 Total Bilirubin 0.5 AST 18 ALT 12 Alkaline Phosphatase 47 Troponin I High Sens < 2.7 Total Protein 7.2 Albumin 4.6 Lipase 17
--- NOTE | 2025-08-10 09:48 | HO.PSYCHPN ---
Subjective Subjective Date of Service: 08/10/25 Reason For Visit: SI/ SIB Subjective Notes: 3 Day Interim History: Active on unit. social with peers. attending groups. Tearful during assessment. Patient continues to report feeling upset d/t argument with boyfriend; pt stated, I just don't understand because he was talking to me about buying a house and having a baby. Now he hasn't contacted my mom to even check to see how I'm doing . denies SI/HI/VH/AH. Discussed increasing Zoloft, pt agreeable; Zoloft increased to 50mg PO bedtime. 3 day notice up on 08/14/25. Medication Compliance: Yes Side effects from medications: No Attending Groups: Yes Mental Status Exam Mental Status Exam Narrative: Pt is alert and oriented; behavior is cooperative, tearful; dressed in casual attire; mood is described as depressed and anxious ; eye contact appropriate; Speech is normal rate, volume and not pressured; thought process is organized, future oriented; Thought content is on tx; denies SI/HI/VH/AH. Diagnostics Vital Signs (24Hr): Vital Signs - 24 hr 08/09/25 20:00 08/10/25 04:00 08/10/25 04:10 Temperature 97.2 F 98.7 F Pulse Rate 68 60 68 Respiratory Rate 15 18 16 Blood Pressure 110/71 95/66 110/62 Pulse Oximetry 99 98 98 Oxygen Delivery Method Room Air Room Air Room Air 08/10/25 07:47 Temperature 98.1 F Pulse Rate 60 Respiratory Rate 20 Blood Pressure 110/60 Pulse Oximetry 98 Oxygen Delivery Method Room Air BMI result Body Mass Index 21.5 Labs 08/10/25 04:36 08/10/25 04:36 Labs: Laboratory Results - last 48 hr 08/10/25 04:36 WBC 7.1 RBC 4.82 Hgb 12.9 Hct 38.1 MCV 79.0 L MCH 26.8 L MCHC 33.9 RDW 12.9 Plt Count 286 MPV 10.7 Immature Gran % (Auto) 0.1 Neut % (Auto) 45.3 Lymph % (Auto) 44.5 H [place] % (Auto) 7.3 Eos % (Auto) 2.0 Baso % (Auto) 0.8 Lymph # (Auto) 3.2 [place] # (Auto) 0.5 Eos # (Auto) 0.1 Baso # (Auto) 0.1 Abs Immat Gran (auto) 0.01 Absolute Neuts (auto) 3.2 Absolute Nucleated RBC 0.000 Nucleated RBC % (auto) 0.0 Sodium 139 Potassium 3.7 Chloride 105 Carbon Dioxide 24 Anion Gap 14 BUN 14 Creatinine 0.73 Estim Creat Clear Calc 97.2 Estimated GFR > 60 Random Glucose 112 Calcium 9.3 Magnesium 2.1 Total Bilirubin 0.5 AST 18 ALT 12 Alkaline Phosphatase 47 Troponin I High Sens < 2.7 Total Protein 7.2 Albumin 4.6 Lipase 17 Medications Medications Current Medications Acetaminophen (Acetaminophen 325 Mg Tablet) 650 mg PO Q6H PRN PRN Reason: Headache/Pain, Scale 1-10 Al Hydroxide/Mg Hydroxide (Magnesium Hydrox/Alum Hydrox 30 Ml Oral.Susp) 30 ml PO Q6H PRN PRN Reason: Heartburn/Nausea Bisacodyl (Bisacodyl 5 Mg Tablet.Dr) 5 mg PO BEDTIME BRADY On Hold: 08/10/25 04:42 Last Admin: 08/09/25 21:41 Dose: 5 mg Hydroxyzine HCl (Hydroxyzine Hcl 25 Mg Tablet) 25 mg PO Q6H PRN PRN Reason: mild anxiety Magnesium Hydroxide (Milk Of Magnesia 30 Ml Oral.Susp) 30 ml PO DAILY PRN PRN Reason: Constipation Last Admin: 08/08/25 09:10 Dose: 30 ml Melatonin (Melatonin 3 Mg Tablet) 6 mg PO BEDTIME BRADY Last Admin: 08/09/25 21:42 Dose: Not Given Nicotine (Nicotine 21 Mg Patch.Td24) 21 mg TRANSDERMA DAILY PRN PRN Reason: nicotine craving Nicotine Polacrilex (Nicotine Polacrilex 2 Mg Gum) 2 mg BUCCAL Q2H PRN PRN Reason: Nicotine Cravings Olanzapine (Olanzapine 5 Mg Tablet) 5 mg PO BID PRN PRN Reason: agitation Sertraline HCl (Sertraline Hcl 25 Mg Tablet) 25 mg PO BEDTIME BRADY Last Admin: 08/09/25 21:40 Dose: 25 mg Trazodone HCl (Trazodone Hcl 50 Mg Tablet) 50 mg PO BEDTIME MRX1 PRN PRN Reason: Insomnia Last Admin: 08/09/25 21:40 Dose: 50 mg Allergies Allergies Allergy/AdvReac Type Severity Reaction Status Date / Time gluten Allergy Stomach Verified 08/04/25 23:56 Upset Assessment & Plan Assessment & Plan (1) MDD (major depressive disorder), recurrent episode: Status: Acute Code(s): F33.9 - Major depressive disorder, recurrent, unspecified (2) PTSD (post-traumatic stress disorder): Status: Acute Code(s): F43.10 - Post-traumatic stress disorder, unspecified Plan Patient is a 29-year-old female with hx of MDD, PTSD, who was brought to ER via ambulance due to suicidal ideation and suicide gesture to slit her wrists with a kitchen knife secondary to increased life stressors. Plan: CV 15 minute safety checks Obtain collateral Start: Zoloft 25mg PO bedtime enourage groups referral to outpatient psychaitric provider ?referral to [facility] discharge planning 08/09: Active on unit. attending groups. Tearful when talking about her relationship. She reports her visit went well with her mother yesterday. She states she is no longer feeling suicidal; pt stated, I prayed last night and I shouldn't feel like wanting to kill myself. I want to have children. I've always wanted to be a mother . Pt reports sleeping well last night. denies any side effects from medications. Continue tx plan. 08/10: Active on unit. social with peers. attending groups. Tearful during assessment. Patient continues to report feeling upset d/t argument with boyfriend; pt stated, I just don't understand because he was talking to me about buying a house and having a baby. Now he hasn't contacted my mom to even check to see how I'm doing . denies SI/HI/VH/AH. Discussed increasing Zoloft, pt agreeable; Zoloft increased to 50mg PO bedtime. 3 day notice up on 08/14/25. Patient educated on: diagnosis, medication risk/benefits and therapeutic strategies Reason for continued inpatient stay Substantial Risk for: med/psych decompensation Time Spent With Patient Time: Total time managing care of this patient today _20___ minutes.
--- NOTE | 2025-08-10 13:36 | PM.EVENT ---
Event Note Date of Service: 08/10/25 Event Note: Reviewed labs, CBC, CMP, lipase and troponins within normal limits. Patient's abdominal pain has resolved. No further intervention necessary at this time. Time Spent With Patient Time: Total time managing care of this patient today ____ minutes.
[2025-08-10 20:00] VITALS: BP 115/71; PULSE 69; RESP 16; TEMP 36.6; O2SAT 99
[2025-08-11 08:00] VITALS: BP 106/59; PULSE 58; RESP 14; TEMP 36.6; O2SAT 99
--- NOTE | 2025-08-11 10:05 | P.PNPSI_ITS ---
Subjective Subjective Date of Service: 08/11/25 Reason For Visit: SI/ SIB Subjective Notes: 3 Day Interim History: Active on unit. social with peers. attending groups. Patient reports feeling overwhelmed with the things I have to go when I leave here like my school work and going back to work . She reports being upset with her mother d/t my mom keeps giving me reality checks like I don't already know what's going on . Pt reports sleeping well last night. denies any side effects from Zoloft. denies SI/HI/VH/AH. 3 day notice up on 08/14/25. continue tx plan. Medication Compliance: Yes Side effects from medications: No Attending Groups: Yes Mental Status Exam Mental Status Exam Narrative: Pt is alert and oriented; behavior is cooperative and calm; dressed in casual attire; mood is described as overwhelmed ; eye contact appropriate; Speech is normal rate, volume and not pressured; thought process is organized, future oriented; Thought content is on tx/discharge; denies SI/HI/VH/AH. Diagnostics Vital Signs (24Hr): Vital Signs - 24 hr 08/10/25 20:00 08/11/25 08:00 Temperature 97.9 F 97.9 F Pulse Rate 69 58 Respiratory Rate 16 14 Blood Pressure 115/71 106/59 L Pulse Oximetry 99 99 Oxygen Delivery Method Room Air Room Air BMI result Body Mass Index 21.5 Labs 08/10/25 04:36 08/10/25 04:36 Labs: Laboratory Results - last 48 hr 08/10/25 04:36 WBC 7.1 RBC 4.82 Hgb 12.9 Hct 38.1 MCV 79.0 L MCH 26.8 L MCHC 33.9 RDW 12.9 Plt Count 286 MPV 10.7 Immature Gran % (Auto) 0.1 Neut % (Auto) 45.3 Lymph % (Auto) 44.5 H [place] % (Auto) 7.3 Eos % (Auto) 2.0 Baso % (Auto) 0.8 Lymph # (Auto) 3.2 [place] # (Auto) 0.5 Eos # (Auto) 0.1 Baso # (Auto) 0.1 Abs Immat Gran (auto) 0.01 Absolute Neuts (auto) 3.2 Absolute Nucleated RBC 0.000 Nucleated RBC % (auto) 0.0 Sodium 139 Potassium 3.7 Chloride 105 Carbon Dioxide 24 Anion Gap 14 BUN 14 Creatinine 0.73 Estim Creat Clear Calc 97.2 Estimated GFR > 60 Random Glucose 112 Calcium 9.3 Magnesium 2.1 Total Bilirubin 0.5 AST 18 ALT 12 Alkaline Phosphatase 47 Troponin I High Sens < 2.7 Total Protein 7.2 Albumin 4.6 Lipase 17 Medications Medications Current Medications Acetaminophen (Acetaminophen 325 Mg Tablet) 650 mg PO Q6H PRN PRN Reason: Headache/Pain, Scale 1-10 Last Admin: 08/10/25 18:30 Dose: 650 mg Al Hydroxide/Mg Hydroxide (Magnesium Hydrox/Alum Hydrox 30 Ml Oral.Susp) 30 ml PO Q6H PRN PRN Reason: Heartburn/Nausea Bisacodyl (Bisacodyl 5 Mg Tablet.Dr) 5 mg PO BEDTIME PRN On Hold: 08/10/25 15:19 PRN Reason: Constipation Hydroxyzine HCl (Hydroxyzine Hcl 25 Mg Tablet) 25 mg PO Q6H PRN PRN Reason: mild anxiety Last Admin: 08/11/25 03:45 Dose: 25 mg Magnesium Hydroxide (Milk Of Magnesia 30 Ml Oral.Susp) 30 ml PO DAILY PRN PRN Reason: Constipation Last Admin: 08/08/25 09:10 Dose: 30 ml Melatonin (Melatonin 3 Mg Tablet) 6 mg PO BEDTIME PRN PRN Reason: insomnia Nicotine (Nicotine 21 Mg Patch.Td24) 21 mg TRANSDERMA DAILY PRN PRN Reason: nicotine craving Nicotine Polacrilex (Nicotine Polacrilex 2 Mg Gum) 2 mg BUCCAL Q2H PRN PRN Reason: Nicotine Cravings Olanzapine (Olanzapine 5 Mg Tablet) 5 mg PO BID PRN PRN Reason: agitation Sertraline HCl (Sertraline Hcl 50 Mg Tablet) 50 mg PO BEDTIME BRADY Last Admin: 08/10/25 20:03 Dose: 50 mg Trazodone HCl (Trazodone Hcl 50 Mg Tablet) 50 mg PO BEDTIME MRX1 PRN PRN Reason: Insomnia Last Admin: 08/10/25 21:12 Dose: 50 mg Allergies Allergies Allergy/AdvReac Type Severity Reaction Status Date / Time gluten Allergy Stomach Verified 08/04/25 23:56 Upset Assessment & Plan Assessment & Plan (1) MDD (major depressive disorder), recurrent episode: Status: Acute Code(s): F33.9 - Major depressive disorder, recurrent, unspecified (2) PTSD (post-traumatic stress disorder): Status: Acute Code(s): F43.10 - Post-traumatic stress disorder, unspecified Plan Patient is a 29-year-old female with hx of MDD, PTSD, who was brought to ER via ambulance due to suicidal ideation and suicide gesture to slit her wrists with a kitchen knife secondary to increased life stressors. Plan: CV 15 minute safety checks Obtain collateral Start: Zoloft 25mg PO bedtime enourage groups referral to outpatient psychaitric provider ?referral to [facility] discharge planning 08/09: Active on unit. attending groups. Tearful when talking about her relationship. She reports her visit went well with her mother yesterday. She states she is no longer feeling suicidal; pt stated, I prayed last night and I shouldn't feel like wanting to kill myself. I want to have children. I've always wanted to be a mother . Pt reports sleeping well last night. denies any side effects from medications. Continue tx plan. 08/10: Active on unit. social with peers. attending groups. Tearful during assessment. Patient continues to report feeling upset d/t argument with boyfriend; pt stated, I just don't understand because he was talking to me about buying a house and having a baby. Now he hasn't contacted my mom to even check to see how I'm doing . denies SI/HI/VH/AH. Discussed increasing Zoloft, pt agreeable; Zoloft increased to 50mg PO bedtime. 3 day notice up on 08/14/25. 08/11: Active on unit. social with peers. attending groups. Patient reports feeling overwhelmed with the things I have to go when I leave here like my school work and going back to work . She reports being upset with her mother d/t my mom keeps giving me reality checks like I don't already know what's going on . Pt reports sleeping well last night. denies any side effects from Zoloft. denies SI/HI/VH/AH. 3 day notice up on 08/14/25. continue tx plan. Patient educated on: diagnosis, medication risk/benefits and therapeutic strategies Reason for continued inpatient stay Substantial Risk for: med/psych decompensation Time Spent With Patient Time: Total time managing care of this patient today _20___ minutes.
[2025-08-11 20:00] VITALS: BP 113/75; PULSE 76; RESP 16; TEMP 36.8; O2SAT 96
[2025-08-12 08:00] VITALS: BP 100/57; PULSE 56; RESP 16; TEMP 36.7; O2SAT 98
--- NOTE | 2025-08-12 13:08 | P.PNPSI_ITS ---
Subjective Subjective Date of Service: 08/12/25 Reason For Visit: SI/ SIB Subjective Notes: 3 Day Healthcare Proxy: No Guardianship: No Medical Problems Affecting Mental Status: No Interim History: Seen in OT room. Slept well with Trazodone and Melatonin. mood calm. Denies SI/HI/AVH. 3-day due Thursday - she feels ready to leave I have a lot to do. Medication Compliance: Yes Side effects from medications: No Review of Systems Acute medical concerns: No Medical Review of Systems: unchanged Review of Systems Review of Systems Yes all other systems are reviewed and are negative Mental Status Exam Mental Status Exam Narrative: Patient Appearance: Well Groomed, adequate hygiene Patient Behavior: Appropriate Level of Consciousness: Awake, alert Patient Orientation: Person, Place and Time Memory: grossly intact to recent events Psychomotor: no agitation or slowing Speech: normal rate, tone, volume Mood: ?okay? Affect: constricted Thought Process: Goal Oriented Thought Content: avoiding thinking about her life; denies SI/HI; focused on treatment questions Hallucinations: Denies; does not appear preoccupied Delusions: None evinced Insight: impaired Judgment: impaired Impulsivity: low Diagnostics Vital Signs (24Hr): Vital Signs - 24 hr 08/11/25 20:00 08/12/25 08:00 Temperature 98.2 F 98.1 F Pulse Rate 76 56 Respiratory Rate 16 16 Blood Pressure 113/75 100/57 L Pulse Oximetry 96 98 Oxygen Delivery Method Room Air Room Air BMI result Body Mass Index 21.5 Labs 08/10/25 04:36 08/10/25 04:36 Medications Medications Current Medications Acetaminophen (Acetaminophen 325 Mg Tablet) 650 mg PO Q6H PRN PRN Reason: Headache/Pain, Scale 1-10 Last Admin: 08/10/25 18:30 Dose: 650 mg Al Hydroxide/Mg Hydroxide (Magnesium Hydrox/Alum Hydrox 30 Ml Oral.Susp) 30 ml PO Q6H PRN PRN Reason: Heartburn/Nausea Bisacodyl (Bisacodyl 5 Mg Tablet.Dr) 5 mg PO BEDTIME PRN On Hold: 08/10/25 15:19 PRN Reason: Constipation Hydroxyzine HCl (Hydroxyzine Hcl 25 Mg Tablet) 25 mg PO Q6H PRN PRN Reason: mild anxiety Last Admin: 08/11/25 03:45 Dose: 25 mg Magnesium Hydroxide (Milk Of Magnesia 30 Ml Oral.Susp) 30 ml PO DAILY PRN PRN Reason: Constipation Last Admin: 08/08/25 09:10 Dose: 30 ml Melatonin (Melatonin 3 Mg Tablet) 6 mg PO BEDTIME PRN PRN Reason: insomnia Last Admin: 08/11/25 21:47 Dose: 6 mg Nicotine (Nicotine 21 Mg Patch.Td24) 21 mg TRANSDERMA DAILY PRN PRN Reason: nicotine craving Nicotine Polacrilex (Nicotine Polacrilex 2 Mg Gum) 2 mg BUCCAL Q2H PRN PRN Reason: Nicotine Cravings Olanzapine (Olanzapine 5 Mg Tablet) 5 mg PO BID PRN PRN Reason: agitation Last Admin: 08/11/25 11:35 Dose: 5 mg Sertraline HCl (Sertraline Hcl 50 Mg Tablet) 50 mg PO BEDTIME BRADY Last Admin: 08/11/25 21:47 Dose: 50 mg Trazodone HCl (Trazodone Hcl 50 Mg Tablet) 50 mg PO BEDTIME MRX1 PRN PRN Reason: Insomnia Last Admin: 08/11/25 21:47 Dose: 50 mg Allergies Allergies Allergy/AdvReac Type Severity Reaction Status Date / Time gluten Allergy Stomach Verified 08/04/25 23:56 Upset Assessment & Plan Assessment & Plan (1) MDD (major depressive disorder), recurrent episode: Status: Acute Code(s): F33.9 - Major depressive disorder, recurrent, unspecified (2) PTSD (post-traumatic stress disorder): Status: Acute Code(s): F43.10 - Post-traumatic stress disorder, unspecified Plan Patient is a 29-year-old female with hx of MDD, PTSD, who was brought to ER via ambulance due to suicidal ideation and suicide gesture to slit her wrists with a kitchen knife secondary to increased life stressors. Plan: CV 15 minute safety checks Obtain collateral Start: Zoloft 25mg PO bedtime enourage groups referral to outpatient psychaitric provider ?referral to [facility] discharge planning 08/09: Active on unit. attending groups. Tearful when talking about her relationship. She reports her visit went well with her mother yesterday. She states she is no longer feeling suicidal; pt stated, I prayed last night and I shouldn't feel like wanting to kill myself. I want to have children. I've always wanted to be a mother . Pt reports sleeping well last night. denies any side effects from medications. Continue tx plan. 08/10: Active on unit. social with peers. attending groups. Tearful during assessment. Patient continues to report feeling upset d/t argument with boyfriend; pt stated, I just don't understand because he was talking to me about buying a house and having a baby. Now he hasn't contacted my mom to even check to see how I'm doing . denies SI/HI/VH/AH. Discussed increasing Zoloft, pt agreeable; Zoloft increased to 50mg PO bedtime. 3 day notice up on 08/14/25. 08/11: Active on unit. social with peers. attending groups. Patient reports feeling overwhelmed with the things I have to go when I leave here like my school work and going back to work . She reports being upset with her mother d/t my mom keeps giving me reality checks like I don't already know what's going on . Pt reports sleeping well last night. denies any side effects from Zoloft. denies SI/HI/VH/AH. 3 day notice up on 08/14/25. continue tx plan. 08/12: no changes today Patient educated on: diagnosis and medication risk/benefits Informed Consent: understands Reason for continued inpatient stay Substantial Risk for: rapid decompensation Time Spent With Patient Time: Total time managing care of this patient today _15___ minutes.
[2025-08-12 20:00] VITALS: BP 112/67; PULSE 70; RESP 16; TEMP 36.6; O2SAT 99
[2025-08-13 07:54] VITALS: BP 105/59; PULSE 65; RESP 14; TEMP 36.7; O2SAT 97
--- NOTE | 2025-08-13 10:56 | HO.PSYCHPN ---
Subjective Subjective Date of Service: 08/13/25 Reason For Visit: SI/ SIB Subjective Notes: Conditional Voluntary Healthcare Proxy: No Guardianship: No Medical Problems Affecting Mental Status: No Interim History: Reports getting 6 hours of sleep. She woke up ruminative about her life, things that happened, problems she wants to figure out. She feels supported Last SI was last week. She asked about which meds will be prescribed for her at discharge. She was referred to her primary team to talk with them in the morning about prescriptions. Medication Compliance: Yes Side effects from medications: No Attending Groups: Yes Review of Systems Acute medical concerns: No Medical Review of Systems: unchanged Mental Status Exam Mental Status Exam Narrative: Patient Appearance: Well Groomed, adequate hygiene Patient Behavior: Appropriate Level of Consciousness: Awake, alert Patient Orientation: Person, Place and Time Memory: grossly intact to recent events Psychomotor: no agitation or slowing Speech: normal rate, tone, volume Mood: ?okay? Affect: constricted Thought Process: Goal Oriented Thought Content: avoiding thinking about her life; denies SI/HI; focused on treatment questions Hallucinations: Denies; does not appear preoccupied Delusions: None evinced Insight: impaired Judgment: impaired Impulsivity: low Diagnostics Vital Signs (24Hr): Vital Signs - 24 hr 08/12/25 20:00 08/13/25 07:54 Temperature 98 F 98.1 F Pulse Rate 70 65 Respiratory Rate 16 14 Blood Pressure 112/67 105/59 L Pulse Oximetry 99 97 Oxygen Delivery Method Room Air Room Air BMI result Body Mass Index 21.5 Labs 08/10/25 04:36 08/10/25 04:36 Medications Medications Current Medications Acetaminophen (Acetaminophen 325 Mg Tablet) 650 mg PO Q6H PRN PRN Reason: Headache/Pain, Scale 1-10 Last Admin: 08/10/25 18:30 Dose: 650 mg Al Hydroxide/Mg Hydroxide (Magnesium Hydrox/Alum Hydrox 30 Ml Oral.Susp) 30 ml PO Q6H PRN PRN Reason: Heartburn/Nausea Bisacodyl (Bisacodyl 5 Mg Tablet.Dr) 5 mg PO BEDTIME PRN On Hold: 08/10/25 15:19 PRN Reason: Constipation Hydroxyzine HCl (Hydroxyzine Hcl 25 Mg Tablet) 25 mg PO Q6H PRN PRN Reason: mild anxiety Last Admin: 08/11/25 03:45 Dose: 25 mg Magnesium Hydroxide (Milk Of Magnesia 30 Ml Oral.Susp) 30 ml PO DAILY PRN PRN Reason: Constipation Last Admin: 08/08/25 09:10 Dose: 30 ml Melatonin (Melatonin 3 Mg Tablet) 6 mg PO BEDTIME PRN PRN Reason: insomnia Last Admin: 08/12/25 21:30 Dose: 6 mg Nicotine (Nicotine 21 Mg Patch.Td24) 21 mg TRANSDERMA DAILY PRN PRN Reason: nicotine craving Nicotine Polacrilex (Nicotine Polacrilex 2 Mg Gum) 2 mg BUCCAL Q2H PRN PRN Reason: Nicotine Cravings Olanzapine (Olanzapine 5 Mg Tablet) 5 mg PO BID PRN PRN Reason: agitation Last Admin: 08/11/25 11:35 Dose: 5 mg Sertraline HCl (Sertraline Hcl 50 Mg Tablet) 50 mg PO BEDTIME BRADY Last Admin: 08/12/25 21:30 Dose: 50 mg Trazodone HCl (Trazodone Hcl 50 Mg Tablet) 50 mg PO BEDTIME MRX1 PRN PRN Reason: Insomnia Last Admin: 08/12/25 21:30 Dose: 50 mg Allergies Allergies Allergy/AdvReac Type Severity Reaction Status Date / Time gluten Allergy Stomach Verified 08/04/25 23:56 Upset Assessment & Plan Assessment & Plan (1) MDD (major depressive disorder), recurrent episode: Status: Acute Code(s): F33.9 - Major depressive disorder, recurrent, unspecified (2) PTSD (post-traumatic stress disorder): Status: Acute Code(s): F43.10 - Post-traumatic stress disorder, unspecified Plan Patient is a 29-year-old female with hx of MDD, PTSD, who was brought to ER via ambulance due to suicidal ideation and suicide gesture to slit her wrists with a kitchen knife secondary to increased life stressors. Plan: CV 15 minute safety checks Obtain collateral Start: Zoloft 25mg PO bedtime enourage groups referral to outpatient psychaitric provider ?referral to [facility] discharge planning 08/09: Active on unit. attending groups. Tearful when talking about her relationship. She reports her visit went well with her mother yesterday. She states she is no longer feeling suicidal; pt stated, I prayed last night and I shouldn't feel like wanting to kill myself. I want to have children. I've always wanted to be a mother . Pt reports sleeping well last night. denies any side effects from medications. Continue tx plan. 08/10: Active on unit. social with peers. attending groups. Tearful during assessment. Patient continues to report feeling upset d/t argument with boyfriend; pt stated, I just don't understand because he was talking to me about buying a house and having a baby. Now he hasn't contacted my mom to even check to see how I'm doing . denies SI/HI/VH/AH. Discussed increasing Zoloft, pt agreeable; Zoloft increased to 50mg PO bedtime. 3 day notice up on 08/14/25. 08/11: Active on unit. social with peers. attending groups. Patient reports feeling overwhelmed with the things I have to go when I leave here like my school work and going back to work . She reports being upset with her mother d/t my mom keeps giving me reality checks like I don't already know what's going on . Pt reports sleeping well last night. denies any side effects from Zoloft. denies SI/HI/VH/AH. 3 day notice up on 08/14/25. continue tx plan. 08/12: no changes today 08/13: no changes, 3 day due tomorrow, plan is for discharge Patient educated on: diagnosis and medication risk/benefits Informed Consent: understands Reason for continued inpatient stay Substantial Risk for: stable for discharge Time Spent With Patient Time: Total time managing care of this patient today _15___ minutes.
[2025-08-13 20:00] VITALS: BP 141/77; PULSE 73; RESP 17; TEMP 36.7; O2SAT 97
[2025-08-14 07:56] VITALS: BP 90/46; PULSE 64; RESP 16; TEMP 36.7; O2SAT 98
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
== END 2025-08-14 11:11 | disposition home or self-care (01) | DRG 751 ==
LOC: HO.ED 08-05 02:44 → HO.PADLT16 08-07 14:39
PROVIDERS: Internal Medicine; Physician Assistant Medical; Admitting Provider Nurse Practitioner Psychiatric/Mental Health; Emergency Provider Emergency Medicine; Responsible Provider Registered Nurse; Visit Provider Psychiatry & Neurology Psychiatry
DX: F33.9 Major depressive disorder, recurrent, unspecified (principal); R45.851 Suicidal ideations; F43.10 Post-traumatic stress disorder, unspecified; Z20.822 Contact with and (suspected) exposure to COVID-19; Z79.899 Other long term (current) drug therapy
CPT/HCPCS: 36415; 80053; 80061; 80143; 80179; 80307; 81003; 81025; 82607; 82746; 83036; 83690; 83735; 84439; 84443; 84484; 85025; 87635; 93005; 99285; S9485

== ENCOUNTER → 2025-08-05 02:42 | Outpatient (BNV) | payer MEDICAID, SELFPAY | PROVIDERS: Emergency Provider Emergency Medicine; Visit Provider Internal Medicine | DX: Z13.6 Encounter for screening for cardiovascular disorders (principal) | CPT/HCPCS: 93010 ==

== ENCOUNTER 2025-08-07 14:25 | Outpatient (BNV) | payer MEDICAID, SELFPAY | END 2025-08-10 04:47 | PROVIDERS: Admitting Provider Nurse Practitioner Psychiatric/Mental Health; Emergency Provider Emergency Medicine; Responsible Provider Registered Nurse; Visit Provider Internal Medicine Cardiovascular Disease | DX: R07.9 Chest pain, unspecified (principal) | CPT/HCPCS: 93010 ==

== ENCOUNTER → 2025-08-07 14:25 | Outpatient (BNV) | payer OTHER, SELFPAY | PROVIDERS: Admitting Provider Nurse Practitioner Psychiatric/Mental Health; Emergency Provider Emergency Medicine; Responsible Provider Registered Nurse; Visit Provider Registered Nurse | DX: F33.9 Major depressive disorder, recurrent, unspecified (principal); F43.10 Post-traumatic stress disorder, unspecified | CPT/HCPCS: 90792 ==

== ENCOUNTER → 2025-08-07 14:25 | Outpatient (BNV) | payer MEDICAID, SELFPAY | PROVIDERS: Admitting Provider Nurse Practitioner Psychiatric/Mental Health; Emergency Provider Emergency Medicine; Responsible Provider Registered Nurse; Visit Provider Nurse Practitioner Family | DX: R45.851 Suicidal ideations (principal) | CPT/HCPCS: 99221; 99499 ==